=== PATIENT | female | born 1950 | race Caucasian/White ===

== ENCOUNTER 2018-01-07 20:24 | Inpatient (IN) ==
[2018-01-07] MEDS ORDERED: *HR* HYDROcodone/Acet 5/325 mg TABLET PO ONE (22:36)
[2018-01-07 23:21] LABS: Bilirubin,Urine Negative (Negative); Blood,Urine Negative (Negative); Clarity,Urine Clear (Clear); Color,Urine Yellow (Yellow); Glucose,Urine (UA) Normal (Normal); Ketones,Urine Negative (Negative); Leukocyte Esterase,Urine Negative (Negative); Nitrite,Urine Negative (Negative); Protein,Urine Negative (Neg-Trace); Specific Gravity,Urine 1.014 (1.010-1.025); Urobilinogen,Urine Normal (Normal)
[2018-01-07 23:31] LABS: Alanine Aminotransferase 18 Units/L (7-52); Albumin 4.7 g/dL (3.5-5.7); Albumin/Globulin Ratio 1.6 (1.1-2.2); Alkaline Phosphatase 168 Units/L (34-104); Aspartate Amino Transferase 37 Units/L (13-39); BUN/Creatinine Ratio 30 (6-26); Bilirubin,Total 0.4 mg/dL (0.3-1.0); Blood Urea Nitrogen 16 mg/dL (8-23); Calcium 10.1 mg/dL (8.6-10.3); Carbon Dioxide 25 mEq/L (23-29); Chloride 90 mEq/L (98-107); Globulin 2.9 g/dL (2.4-3.5); Glucose 127 mg/dL (70-105); Osmolality,Calculated 261 (280-300); Sodium 124 mEq/L (136-145); Total Protein 7.6 g/dL (6.4-8.9); Troponin I < 0.03 ng/mL (< 0.04); eGFR For African Americans > 60 (> 60); eGFR For Non-African Americans > 60 (> 60)
--- NOTE | 2018-01-07 23:35 | Emergency Department Note ---
Disposition Clinical Impression: Frequent falls, Hyponatremia Wrist fracture, left Qualifiers: Encounter type: initial encounter Fracture type: closed Qualified Code(s): S62.102A - Fracture of unspecified carpal bone, left wrist, initial encounter for closed fracture Disposition: Admitted As Inpatient Condition: Good General Adult HPI - General Chief complaint: ED Extremity Injury, Upper Stated complaint: Fell "L wrist pain"/ CA pt Time Seen by Provider: 01/07/18 21:21 Source: patient Limitations: no limitations Nursing Notes Reviewed: Yes Vital Signs Reviewed: Yes - History of Present Illness HPI Narrative: 67 year old female presents with fall injury. Patient stated she tried to stand up and suddenly blacked out. She fell on her left side arm. Patient felt left wrist pain and swelling. Patient is not sure whether she hit her head. Patient is not on blood thinner. Patient stated it was the fourth time fall in the past 2 weeks. Patient stated she started hearing someone was talking in long distance. She visited her primary care and found out her sodium level was low. Patient denied weakness of extremities. Onset (ago): hour(s) Location: upper extremity Pain Scale: 3 Quality: stabbing Consistency: constant - Related Data Home Medications Medication Instructions Recorded Confirmed Albuterol Neb [Proventil Neb] 2.5 mg IH Q4-6H PRN 10/02/17 10/02/17 Albuterol Sulfate [Proair Hfa] 2 puff IH Q4H PRN 10/02/17 10/02/17 Aspirin Enteric Coated [Aspirin EC] 81 mg PO DAILY 10/02/17 10/02/17 Calcium Carbonate [Tums] 500 mg PO QID PRN 10/02/17 10/02/17 Calcium Crb,Cit/D3/Min34/Lluvia 1 each PO DAILY 10/02/17 10/02/17 [Citracal + Bone Density Tablet] Cyanocobalamin (B-12) [Vitamin B12] 1,000 mcg IM QWEEK 10/02/17 10/02/17 Fluconazole [Diflucan] 150 mg PO DAILY PRN 10/02/17 10/02/17 Fluticasone/Salmeterol [Advair 1 each IH BID 10/02/17 10/02/17 250-50 Diskus] Furosemide [Lasix] 40 mg PO DAILY PRN 10/02/17 10/02/17 HYDROmorphone [Dilaudid] 4 mg PO QID PRN 10/02/17 10/02/17 Levothyroxine [Synthroid] 88 mcg PO 0630 10/02/17 10/02/17 Lidocaine Viscous Oral Soln 10 ml MM QID PRN 10/02/17 10/02/17 Lipase/Protease/Amylase [Luis Miguel Sousa 1 each PO TIDWM 10/02/17 10/02/17 24,000 Units Capsule] Lipase/Protease/Amylase [Kamron Sousa 1 - 2 each PO TIDWM 10/02/17 10/02/17 40,000 Units Capsule] Lisinopril 30 mg PO DAILY 10/02/17 10/02/17 Metoprolol [Lopressor] 25 mg PO BID 10/02/17 10/02/17 Modafinil [Provigil] 100 mg PO DAILY 10/02/17 10/02/17 Multivitamin [One Daily Essential] 1 each PO DAILY 10/02/17 10/02/17 Nitroglycerin [Nitrostat] 0.4 mg SL Q5M PRN 10/02/17 10/02/17 Nystatin POWDER [Nystop] 1 appl TP TID PRN 10/02/17 10/02/17 Ondansetron HCl [Zofran] 4 mg PO Q6H PRN 10/02/17 10/02/17 Oxygen 2 l NS AD 10/02/17 10/02/17 Potassium Chloride [Klor-Con 10] 10 meq PO DAILY PRN 10/02/17 10/02/17 Psyllium Husk [Metamucil] 0.52 gm PO DAILY 10/02/17 10/02/17 Sucralfate [Carafate] 1 gm PO QID 10/02/17 10/02/17 Tamsulosin [Flomax] 0.4 mg PO DAILY 10/02/17 10/02/17 diazePAM [Valium] 5 mg PO TID PRN 10/02/17 10/02/17 lamoTRIgine [Lamictal] 100 mg PO HS 10/02/17 10/02/17 Previous Rx's Medication Instructions Recorded Cyclobenzaprine [Flexeril] 10 mg PO TID #15 tablet 10/01/17 Cyclobenzaprine [Flexeril] 10 mg PO TID PRN #15 tablet 12/14/17 Lidocaine Patch [Lidoderm 5% patch] 1 each TP DAILY #7 adh..patch 12/14/17 Allergies Allergy/AdvReac Type Severity Reaction Status Date / Time ketorolac [From Toradol] Allergy Gastrointestinal Verified 10/01/17 14:23 Upset metronidazole [From Flagyl] Allergy Rash Verified 10/02/17 11:13 Penicillins [PCN] Allergy Hives Verified 10/01/17 14:23 prochlorperazine Allergy Dizziness Verified 10/01/17 14:23 [From Compazine] Sulfa (Sulfonamide Allergy Hives Verified 10/01/17 14:23 Antibiotics) tramadol Allergy Seizure Verified 10/02/17 11:13 Verapamil Allergy Itching Verified 10/01/17 14:23 Constitutional: Denies: fever, chills, weakness, weight change Eyes: Denies: eye pain, eye discharge, vision change ENT ED: Denies: ear pain, throat pain, dental pain, hearing loss, epistaxis, congestion, dysphagia Cardiovascular: Denies: chest pain, palpitations, dyspnea on exertion, edema, syncope Respiratory: Denies: cough, dyspnea, wheezes, hemoptysis, stridor Gastrointestinal: Denies: abdominal pain, nausea, vomiting, diarrhea, constipation, hematemesis, melena, hematochezia Genitourinary: Denies: dysuria, frequency, hematuria, discharge Musculoskeletal: Reports: joint swelling, arthralgia (Left wrist pain and a swelling). Denies: back pain, neck pain, myalgia Integumentary: Denies: rash, abrasion, lesions Neurological: Reports: other (Blacked out). Denies: headache, weakness, numbness, paresthesias, confusion, abnormal gait, vertigo Psychiatric: Reports: auditory hallucinations (Hears someone stalking in long- distance). Denies: anxiety, depression, suicidal thoughts, homicidal thoughts, visual hallucinations Endocrine: Denies: fatigue Hematological/Lymphatic: Denies: easy bleeding, easy bruising Allergic/Immunologic: Denies: facial swelling, urticaria Past Medical History - Past Medical History Medical history: Reports: COPD, coronary artery disease, GERD, hyperlipidemia, hypertension, osteoporosis, renal disease, seizures, thyroid disease, valvular heart disease, other Surgical history: Reports: non-contributory Psychiatric history: Reports: anxiety, depression - Social History Smoking Status: Never smoker Smokeless Tobacco Status: No Alcohol use: Reports: none Drug use: Reports: none Physical Exam - General Limitations: no limitations General appearance: alert, in no apparent distress - Head Head exam: atraumatic, normal inspection - Eye Eye exam: Present: normal appearance. Absent: scleral icterus, conjunctival injection - ENT ENT exam: normal exam, normal external ear exam - Neck Neck exam: Present: normal inspection, full ROM, trachea midline - Chest Chest inspection: Present: normal inspection, symmetric chest wall rise - Respiratory Respiratory exam: Present: normal lung sounds bilaterally. Absent: respiratory distress, wheezes - Cardiovascular Cardiovascular exam: Present: regular rate, normal rhythm, normal heart sounds - Abdominal Exam Abdominal exam: Present: soft, Non-Tender - Expanded Upper Extremity Exam Shoulder exam: Present: normal inspection, full ROM. Absent: tenderness, swelling Arm exam: Present: normal inspection, full ROM Elbow exam: Present: normal inspection, full ROM Forearm/Wrist exam: Present: tenderness, swelling (Left wrist swelling, dorsal side tender to palpation) Hand exam: Present: normal inspection, full ROM. Absent: tenderness, swelling Vascular exam: Normal: capillary refill (Normal) - Back Exam Back exam: Present: normal inspection, full ROM. Absent: tenderness - Neurological Exam Neurological exam: Present: alert, oriented X3, CN II-XII intact. Absent: motor sensory deficit - Psychiatric Psychiatric exam: Present: normal affect, normal mood. Absent: homicidal ideation, suicidal ideation - Skin Skin exam: Present: warm, intact Course Vital Signs Temperature 97.6 F 01/07/18 20:44 Pulse Rate 82 01/07/18 20:44 Respiratory Rate 16 01/07/18 20:44 Blood Pressure 166/88 01/07/18 20:44 O2 Sat by Pulse Oximetry 99 01/07/18 20:44 Temperature 97.8 F 01/08/18 03:26 Pulse Rate 89 01/08/18 03:26 Respiratory Rate 17 01/08/18 03:26 Blood Pressure 164/92 01/08/18 03:26 O2 Sat by Pulse Oximetry 96 01/08/18 03:26 Oxygen Delivery Oxygen Delivery Nasal Cannula Procedures - Orthopedic Splinting/Casting Injury #1 Side: left Upper Extremity Injury Location: wrist Upper Extremity Immobilizer: ulnar gutter (Splint applied by tech, posterior procedure exam was done by anaelf, no neurovascular deficit.) Medical Decision Making - [facility] Narrative Medical decision making narrative: 67 year old female presents with frequently fall. Patient stated she blackout prior to fall. Patient hurt her left wrist at this time. Patient reported auditory hallucination for 3 weeks after the same time she was found lower sodium level. Patient denied weakness of extremities. Physical exam: Alert and oriented, left wrist swelling, tender to palpation, capillary refill time normal, no sensory change. No other focal neurology deficit, cranial nerve function intact. Labs: Sodium 124. Negative troponin. UA: Normal. X-ray: wrist : fracture. Ulnar gutter splint applied in ER. Head CT unremarkable. Patient will be admitted for frequently fall and hyponatrimia. - Lab Data Result diagrams: 01/08/18 01:18 01/07/18 22:54 Lab Results 01/07/18 01/07/18 01/08/18 Range/Units 22:54 23:07 01:18 WBC 8.9 (4.3-11.1) K/mcL RBC 3.76 L (3.82-4.97) M/mcL Hgb 12.3 (11.5-15.4) g/dL Hct 34.7 L (35.3-44.9) % MCV 92.3 (83.0-100.0) fL MCH 32.7 (28.0-33.3) pg MCHC 35.4 (31.6-35.5) g/dL RDW 11.5 (11.5-14.5) % Plt Count 282 (140-400) K/mcL MPV 9.2 L (9.4-12.4) fL Immature Gran % 0.4 (0-4) % Seg Neutrophils % 83.5 % Lymphocytes % 10.3 % Monocytes % 5.1 % Eosinophils % 0.4 % Basophils % 0.3 % Neutrophils # 7.5 (1.6-8.9) K/mcL Lymphocytes # 0.9 (0.6-4.6) K/mcL Monocytes # 0.5 (0.0-1.3) K/mcL Eosinophils # 0.0 (0.0-0.6) K/mcL Basophils # 0.0 (0.0-0.2) K/mcL Immature Plt Fraction 3.1 (1.1-6.1) % Sodium 124 L (136-145) mEq/L Potassium 5.0 (3.5-5.1) mEq/L Chloride 90 L (98-107) mEq/L Carbon Dioxide 25 (23-29) mEq/L BUN 16 (8-23) mg/dL Creatinine 0.54 L (0.60-1.20) mg/dL Est GFR ( Amer) > 60 (> 60) Est GFR (Non-Af Amer) > 60 (> 60) BUN/Creatinine Ratio 30 H (6-26) Glucose 127 H (70-105) mg/dL Calculated Osmolality 261 L (280-300) Calcium 10.1 (8.6-10.3) mg/dL Total Bilirubin 0.4 (0.3-1.0) mg/dL AST 37 (13-39) Units/L ALT 18 (7-52) Units/L Alkaline Phosphatase 168 H (34-104) Units/L Troponin I < 0.03 (< 0.04) ng/mL Serum Total Protein 7.6 (6.4-8.9) g/dL Albumin 4.7 (3.5-5.7) g/dL Globulin 2.9 (2.4-3.5) g/dL Albumin/Globulin Ratio 1.6 (1.1-2.2) Urine Color Yellow (Yellow) Urine Clarity Clear (Clear) Urine pH 7.0 (5.0-8.0) pH Units Ur Specific [place] 1.014 (1.010-1.025) Urine Protein Negative (Neg-Trace) mg/dL Urine Glucose (UA) Normal (Normal) mg/dL Urine Ketones Negative (Negative) mg/dL Urine Blood Negative (Negative) Urine Nitrite Negative (Negative) Urine Bilirubin Negative (Negative) Urine Urobilinogen Normal (Normal) mg/dL Ur Leukocyte Esterase Negative (Negative) Ur Culture Indicated? NO (NO) Attestation Statement - Attestation Attestation: I examined this patient and my medical decision-making was reviewed with the Resident Physician. I agree with the documented findings, disposition and treatment plan as described except to the extent set forth below. Fall, left wrist fracture, we will place and splint, neurovascular intact, subsequent finding of hyponatremia. We will admit for normal saline, further management for frequent falls. CT scan shows no evidence of fracture..
[2018-01-08 01:58] LABS: Basophils % 0.3 %; Eosinophils % 0.4 %; Hematocrit 34.7 % (35.3-44.9); Hemoglobin 12.3 g/dL (11.5-15.4); Immature Granulocytes % 0.4 % (0-4); Immature Platelets 3.1 % (1.1-6.1); Lymphocytes # 0.9 K/mcL (0.6-4.6); Lymphocytes % 10.3 %; Mean Corpuscular HGB Conc 35.4 g/dL (31.6-35.5); Mean Corpuscular Hemoglobin 32.7 pg (28.0-33.3); Mean Corpuscular Volume 92.3 fL (83.0-100.0); Mean Platelet Volume 9.2 fL (9.4-12.4); Monocytes # 0.5 K/mcL (0.0-1.3); Monocytes % 5.1 %; Neutrophils # 7.5 K/mcL (1.6-8.9); Platelet Count 282 K/mcL (140-400); Red Blood Count 3.76 M/mcL (3.82-4.97); Red Cell Distribution Width 11.5 % (11.5-14.5); Segmented Neutrophils % 83.5 %
[2018-01-08] MEDS ORDERED: *HR* OxyCODONE/APAP 5/325 TABLET PO ONE (02:23)
[2018-01-08] MEDS ORDERED: Naloxone 0.4 MG/ML INJ IVP PRN (04:54)
[2018-01-08] MEDS ORDERED: *HR* HYDROcodone/Acet 5/325 mg TABLET PO PRN (04:54)
[2018-01-08] MEDS: *HR* Heparin 5,000 UNIT/ML VIAL SQ SCH ×2 (05:54→17:07)
--- NOTE | 2018-01-08 07:02 | Internal Med History&Physical ---
Date of Encounter: 01/08/18 Time of Encounter: 03:00 Internal Medicine - H&P: HPI Chief complaint: Syncope and fall Admitted From: Home Plans for Post Hospital Care: Home History of present illness: Ms. Ortiz is a 67 year old female present to ER for syncope and fall. Past medical history is significant for osteoporosis, hypothyroidism, COPD, hypertension, chronic pancreatitis, hyponatremia, chronic pain on intrathecal hydrmorphane pump, seizure. Patient has 4 times fall in last 3 weeks. Patient said she has dizziness prior to fall. With loss of consciousness. Today, she had head hit and right wrist pain. Patient denies seizure-like activity during syncope. Patient denies chest pain or palpitation prior to fall/syncope. She has no tongue bite or urinary incontinence. Patient denies other part of the body pain. In the emergency room, CT head negative, x-ray shows left wrist fracture. Patient was admitted for further management. Patient also mentioned right lower leg swelling for 4 days, with tenderness. I have discussed CODE STATUS with this patient. Patient clearly told me she does not want CPR or intubation. DNR DNI placed. Past Med Surg Social Fam HX - Past Medical History Medical history: COPD, coronary artery disease, GERD, hyperlipidemia, hypertension, osteoporosis, renal disease, seizures, thyroid disease, valvular heart disease, other Additional medical history: low sodium Psychiatric history: anxiety, depression - Past Surgical History Surgical History: non-contributory Additional surgical history: Gastric Bypass - Social History Smoking Status: Never smoker Smokeless Tobacco Status: No Alcohol use: none Drug use: none - Family History Mother History Unknown: Yes Internal Medicine - H&P: Meds Cyclobenzaprine [Flexeril] 10 mg PO TID #15 tablet 10/01/17 [Rx] Albuterol Neb [Proventil Neb] 2.5 mg IH Q4-6H PRN 10/02/17 [History] Albuterol Sulfate [Proair Hfa] 2 puff IH Q4H PRN 10/02/17 [History] Aspirin Enteric Coated [Aspirin EC] 81 mg PO DAILY 10/02/17 [History] Calcium Carbonate [Tums] 500 mg PO QID PRN 10/02/17 [History] Calcium Crb,Cit/D3/Min34/Lluvia [Citracal + Bone Density Tablet] 1 each PO DAILY 10/02/17 [History] Cyanocobalamin (B-12) [Vitamin B12] 1,000 mcg IM QWEEK 10/02/17 [History] Fluconazole [Diflucan] 150 mg PO DAILY PRN 10/02/17 [History] Fluticasone/Salmeterol [Advair 250-50 Diskus] 1 each IH BID 10/02/17 [History] Furosemide [Lasix] 40 mg PO DAILY PRN 10/02/17 [History] HYDROmorphone [Dilaudid] 4 mg PO QID PRN 10/02/17 [History] Levothyroxine [Synthroid] 88 mcg PO 0630 10/02/17 [History] Lidocaine Viscous Oral Soln 10 ml MM QID PRN 10/02/17 [History] Lipase/Protease/Amylase [Creon Dr 24,000 Units Capsule] 1 each PO TIDWM [History] Lipase/Protease/Amylase [Zenpep Dr 40,000 Units Capsule] 1 - 2 each PO TIDWM [History] Lisinopril 30 mg PO DAILY 10/02/17 [History] Metoprolol [Lopressor] 25 mg PO BID 10/02/17 [History] Modafinil [Provigil] 100 mg PO DAILY 10/02/17 [History] Multivitamin [One Daily Essential] 1 each PO DAILY 10/02/17 [History] Nitroglycerin [Nitrostat] 0.4 mg SL Q5M PRN 10/02/17 [History] Nystatin POWDER [Nystop] 1 appl TP TID PRN 10/02/17 [History] Ondansetron HCl [Zofran] 4 mg PO Q6H PRN 10/02/17 [History] Oxygen 2 l NS AD 10/02/17 [History] Potassium Chloride [Klor-Con 10] 10 meq PO DAILY PRN 10/02/17 [History] Psyllium Husk [Metamucil] 0.52 gm PO DAILY 10/02/17 [History] Sucralfate [Carafate] 1 gm PO QID 10/02/17 [History] Tamsulosin [Flomax] 0.4 mg PO DAILY 10/02/17 [History] diazePAM [Valium] 5 mg PO TID PRN 10/02/17 [History] lamoTRIgine [Lamictal] 100 mg PO HS 10/02/17 [History] Cyclobenzaprine [Flexeril] 10 mg PO TID PRN #15 tablet 12/14/17 [Rx] Lidocaine Patch [Lidoderm 5% patch] 1 each TP DAILY #7 adh..patch 12/14/17 [Rx] 3 Allergy/AdvReac Type Severity Reaction Status Date / Time ketorolac [From Toradol] Allergy Gastrointestinal Verified 10/01/17 14:23 Upset metronidazole [From Flagyl] Allergy Rash Verified 10/02/17 11:13 Penicillins [PCN] Allergy Hives Verified 10/01/17 14:23 prochlorperazine Allergy Dizziness Verified 10/01/17 14:23 [From Compazine] Sulfa (Sulfonamide Allergy Hives Verified 10/01/17 14:23 Antibiotics) tramadol Allergy Seizure Verified 10/02/17 11:13 Verapamil Allergy Itching Verified 10/01/17 14:23 All Systems PM: A 10-system review of systems was performed and is negative for pertinent findings except as documented above in the HPI. - Constitutional Vitals: Temp Pulse Resp BP Pulse Ox 97.8 F 89 17 164/92 96 01/08/18 03:26 01/08/18 03:26 01/08/18 03:26 01/08/18 03:26 01/08/18 03:26 General appearance: Present: A&O X 3, no acute distress, answers questions appropriately - Head Head exam: Present: atraumatic, normocephalic - Eye Eye exam: Present: PERRL, conjuntiva pink, sclera anicteric Pupils: Present: PERRL - Neck Neck exam general surgery: Present: supple, trachea midline. Absent: lymphadenopathy - Respiratory Respiratory exam: Present: CTAB. Absent: accessory muscle use, rales, rhonchi, wheezes - Cardiovascular Cardiovascular exam: Present: RRR, +S1, +S2. Absent: diastolic murmur, gallop, rubs, systolic murmur - GI/Abdominal GI/Abdominal exam: Present: normal bowel sounds, soft, no peritoneal signs. Absent: distended, tenderness - Extremities Exam Extremities exam: Present: calf tenderness (On the right lower leg), warm, radial pulses palpable and symmetrical. Absent: cyanotic, pedal edema Additional comments: Left wrist in splint. - Neurological Exam Neurological exam: Present: CN II-XII intact, oriented X3, no focal deficits. Absent: pronater drift, facial droop, speech deficit - Skin Skin exam: Present: dry, intact Internal Med - H&P Results - Labs CBC & Chem 7: 01/08/18 01:18 01/07/18 22:54 - Assessment and plan (1) Right leg swelling Current Visit: Yes Status: Acute Assessment and plan: Need to rule out DVT. Place on Doppler venous stat. (2) Syncope Current Visit: Yes Status: Acute Assessment and plan: Etiology is undetermined. Need to rule out cardio/neuro etiology. Highly suspect pain pump causing the syncope. - Place patient on continuous Cardiac monitoring - Echo and duplex carotid - Patient will follow-up with his pain management doctor in [facility] to adjust the infusion rate of intrathecal pump Qualifiers: Syncope type: unspecified Qualified Code(s): R55 - Syncope and collapse (3) COPD (chronic obstructive pulmonary disease) Current Visit: Yes Status: Acute Assessment and plan: No wheezing, continue home medications Qualifiers: COPD type: emphysema Emphysema type: unspecified Qualified Code(s): J43.9 - Emphysema, unspecified (4) Hypertension Current Visit: Yes Status: Acute Assessment and plan: Continue home medications after verification. Close monitor patient's BP Qualifiers: Hypertension type: essential hypertension Qualified Code(s): I10 - Essential (primary) hypertension (5) DVT prophylaxis Current Visit: Yes Status: Acute Assessment and plan: Heparin subcutaneously (6) Frequent falls Current Visit: Yes Status: Acute Assessment and plan: Due to syncope. Management as above (7) Hyponatremia Current Visit: Yes Status: Acute Assessment and plan: Chronic. Continue sodium pills by mouth. Follow-up sodium level (8) Wrist fracture, left Current Visit: Yes Status: Acute Assessment and plan: Minimal displacement. Splint placed by ER. Will consult orthopedic, nonurgent, day shift to call. Continue pain management. Qualifiers: Encounter type: initial encounter Fracture type: closed Qualified Code(s) : S62.102A - Fracture of unspecified carpal bone, left wrist, initial encounter for closed fracture - Time Spent With Patient Total time spent is greater than 50% in coordination of care (as documented) at patient's floor/unit and/or counseling patient: 40 minutes Greater than 35 minutes
[2018-01-08] MEDS: Aspirin Enteric Coated 81 MG Tablet PO SCH (09:16)
--- NOTE | 2018-01-08 09:46 | Event Note ---
Date of Encounter: 01/08/18 Time of Encounter: 09:41 Seen and examined at bedside 67 F with OP, chronic pancreatitis, chronic pain with an intrathecal pump, chronic hyponatremia, seizure disorder, copd, HTN She is admitted to obs for syncope and recurrent falls She complained of feeling her L knee "locked", she stopped taking her sodium pils on recommendation by her PCP She also sustained a L radial and ulnar fracture-ortho has been consulte, Dr. Tamez informed Physical exam: AAOX3, NAD, VSS, CTAB, S1, S2, bilatera pitiing pedal edema, RLE >LLE Labs and Imaging reviewed Plan is to reconcile and resume home meds including diuretics, continue current management, follow ECHO report, Venous doppler of RLE negative for DVT, Carotid doppler negative for stenotic plaques PTOT eval after ortho eval Patient is a fall risk
[2018-01-08] MEDS ORDERED: Albuterol 2.5 MG/3 ML NEBULIZER IH PRN ×2 (10:00→10:18)
[2018-01-08] MEDS: Budesonide/Formoterol 80/4.5 MDI IH SCH ×2 (10:18→19:47)
--- NOTE | 2018-01-08 11:51 | Orthopedic Consult Note ---
Date of Encounter: 01/08/18 Time of Encounter: 10:45 Assessment and Plan (1) Wrist fracture, left Current Visit: Yes Status: Acute Left distal radius and ulnar styloid fracture. Discussed with Dr. Rcici and will require left ORIF. Plan for surgery on 01/10. Depending on her work up for the syncope this procedure can be done on outpatient basis if she is discharged before that time. I did discuss the procedure with the patient and as well as the r/b/a and she expressed understanding. Consent was signed and given to surgery tech in [facility] office to be scanned into system. Leave splint in place until surgery. Continue to ice and elevate. ROM of fingers as tolerated. NWB to LUE. Pain control per hospitalist. Will need to be NPO midnight before surgery. Qualifiers: Encounter type: initial encounter Fracture type: closed Qualified Code(s) : S62.102A - Fracture of unspecified carpal bone, left wrist, initial encounter for closed fracture History of Present Illness Chief complaint: left wrist pain HPI: Ms. Ortiz is a 67 year old female who presented to [facility] yesterday with left wrist pain after a fall yesterday. She has been having frequent syncope episodes which she states she passes out just for a second, long enough to cause a fall and this is roughly the 9th time it has happened in the last 2 months. States her PCP at [place] has been managing this. She believes she fell on outstretched hand and has had constant pain in wrist since that time, currently under control with medication and improved with elevation, worse when not elevated. Denies any numbness to fingers but does have some tingling. Denies any chest pain, SOB, fevers. She is right hand dominant. She states she broke this same wrist less than a year ago. Upon further reading in [facility] chart, she had RIGHT distal radius fracture 06/2017 with conservative treatment by Dr. Archer but patient never returned to the office after her 2 week follow up appt. She denies any concerns with her right wrist at this time but does mention her hands have been turning red for the past week or so with no known new exposures or injuries. States PCP is looking into this as well. She also admits to her left knee"locking up" on her roughly once a week but states this is not the cause of her falls. [facility]. She also admits to swelling to the right leg for the past week as well. Past Med Surg Social Fam HX - Past Medical History Medical history: COPD, coronary artery disease, GERD, hyperlipidemia, hypertension, osteoporosis, renal disease, seizures, thyroid disease, valvular heart disease, other Additional medical history: low sodium Psychiatric history: anxiety, depression - Past Surgical History Surgical History: non-contributory Additional surgical history: Gastric Bypass - Social History Smoking Status: Never smoker Smokeless Tobacco Status: No Alcohol use: none Drug use: none - Family History Mother History Unknown: Yes Medications and Allergies Albuterol Neb [Proventil Neb] 2.5 mg IH Q4-6H PRN 10/02/17 [History] Albuterol Sulfate [Proair Hfa] 2 puff IH Q4H PRN 10/02/17 [History] Aspirin Enteric Coated [Aspirin EC] 81 mg PO DAILY 10/02/17 [History] Calcium Carbonate [Tums] 500 mg PO QID PRN 10/02/17 [History] Calcium Crb,Cit/D3/Min34/Lluvia [Citracal + Bone Density Tablet] 1 each PO DAILY 10/02/17 [History] Fluticasone/Salmeterol [Advair 250-50 Diskus] 1 each IH BID 10/02/17 [History] HYDROmorphone [Dilaudid] 4 mg PO QID PRN 10/02/17 [History] Levothyroxine [Synthroid] 88 mcg PO 0630 10/02/17 [History] Lidocaine Viscous Oral Soln 10 ml MM QID PRN 10/02/17 [History] Lipase/Protease/Amylase [Luis Miguel Sousa 24,000 Units Capsule] 1 each PO TIDWM [History] Lisinopril 30 mg PO DAILY 10/02/17 [History] Modafinil [Provigil] 100 mg PO DAILY 10/02/17 [History] Multivitamin [One Daily Essential] 1 each PO DAILY 10/02/17 [History] Nitroglycerin [Nitrostat] 0.4 mg SL Q5M PRN 10/02/17 [History] Nystatin POWDER [Nystop] 1 appl TP TID PRN 10/02/17 [History] Ondansetron HCl [Zofran] 4 mg PO Q6H PRN 10/02/17 [History] Oxygen 2 l NS AD 10/02/17 [History] Potassium Chloride [Klor-Con 10] 10 meq PO DAILY PRN 10/02/17 [History] Psyllium Husk [Metamucil] 0.52 gm PO DAILY 10/02/17 [History] Sucralfate [Carafate] 1 gm PO QID 10/02/17 [History] Tamsulosin [Flomax] 0.4 mg PO DAILY 10/02/17 [History] diazePAM [Valium] 5 mg PO TID PRN 10/02/17 [History] lamoTRIgine [Lamictal] 100 mg PO HS 10/02/17 [History] Cyclobenzaprine [Flexeril] 10 mg PO TID PRN #15 tablet 12/14/17 [Rx] Acetaminophen [Tylenol] 650 mg PO Q6HR 01/08/18 [History] Esomeprazole Magnesium [Nexium] 40 mg PO Q12H 01/08/18 [History] Furosemide [Lasix] 20 mg PO DAILY 01/08/18 [History] LORazepam [Ativan] 1 mg PO TID 01/08/18 [History] Lidocaine Patch [Lidoderm 5% patch] 1 patch TP DAILY 01/08/18 [History] Metoprolol Succinate [Toprol Xl] 50 mg PO DAILY 01/08/18 [History] Promethazine [Phenergan] 25 mg PO Q6HR 01/08/18 [History] Spironolactone [Aldactone] 25 mg PO DAILY 01/08/18 [History] amLODIPine [Norvasc] 5 mg PO DAILY 01/08/18 [History] 3 Allergy/AdvReac Type Severity Reaction Status Date / Time ketorolac [From Toradol] Allergy Gastrointestinal Verified 01/08/18 10:38 Upset metronidazole [From Flagyl] Allergy Rash Verified 01/08/18 10:38 Penicillins [PCN] Allergy Hives Verified 01/08/18 10:38 prochlorperazine Allergy Dizziness Verified 01/08/18 10:38 [From Compazine] Sulfa (Sulfonamide Allergy Hives Verified 01/08/18 10:38 Antibiotics) tramadol Allergy Seizure Verified 01/08/18 10:38 Verapamil Allergy Itching Verified 01/08/18 10:38 All Systems Reviewed: The remainder of the systems were reviewed and are negative - Constitutional Constitutional: as per HPI - Cardiovascular Cardiovascular: as per HPI - Respiratory Respiratory: as per HPI - Musculoskeletal Musculoskeletal: as per HPI Physical Exam - Constitutional Vitals: Temp Pulse Resp BP Pulse Ox 97.4 F L 89 17 167/86 98 01/08/18 09:11 01/08/18 09:11 01/08/18 10:20 01/08/18 09:11 01/08/18 10:20 - Wrist & Hand left Location of pain: volar wrist (short volar splint in place to left arm, not removed for exam due to known fracture. minimal swelling to fingers. no skin breakdown around edges of splint. limited ROM of fingers and elbow. brisk cap refill. grossly NV intact) Results - Labs Result Diagrams: 01/08/18 01:18 01/07/18 22:54 Labs: Abnormal lab results RBC 3.76 M/mcL (3.82-4.97) L 01/08/18 01:18 Hct 34.7 % (35.3-44.9) L 01/08/18 01:18 MPV 9.2 fL (9.4-12.4) L 01/08/18 01:18 Sodium 124 mEq/L (136-145) L 01/07/18 22:54 Chloride 90 mEq/L (98-107) L 01/07/18 22:54 Creatinine 0.54 mg/dL (0.60-1.20) L 01/07/18 22:54 BUN/Creatinine Ratio 30 (6-26) H 01/07/18 22:54 Glucose 127 mg/dL (70-105) H 01/07/18 22:54 Calculated Osmolality 261 (280-300) L 01/07/18 22:54 Alkaline Phosphatase 168 Units/L (34-104) H 01/07/18 22:54 All other labs normal. - Diagnostic results Wrist/Hand x-ray: report reviewed, image reviewed Consult Discharge Plan - Plan Referrals: Lance Marcos MD [Primary Care Provider] - - Attending Attestation Case and plan of care discussed with supervising physician who was available for all aspects of care.
[2018-01-08] MEDS: Acetaminophen 325 MG TABLET PO PRN ×2 (12:31→20:08)
[2018-01-08] MEDS: Furosemide 20 MG TABLET PO SCH (12:31)
--- NOTE | 2018-01-08 16:22 | Electrocardiograph Report ---
[place] [id number] Test Date: 2018-01-07 Pat Name: Elisa Ortiz Department: 102 Room: 2A11 Gender: F Operations Assistant: : [id number] Requested By: Quentin Rojo Order Number: [id number] Reading MD: Renu Lin Measurements Intervals [place] Rate: 77 P: 68 NC: 140 QRS: -3 QRSD: 85 T: 18 QT: 369 QTc: 401 Interpretive Statements SINUS RHYTHM POSSIBLE ANTERIOR MYOCARDIAL INFARCTION [30 ms Q WAVE IN V3/V4, OR R < 0.2 mV IN V4], OF INDETERMINATE AGE ARTIFACT Electronically Signed On 01-08-2018 16:21:19 EDT by Renu Lin
[2018-01-08 18:31] LABS: BUN/Creatinine Ratio 28 (6-26); Blood Urea Nitrogen 16 mg/dL (8-23); Calcium 9.8 mg/dL (8.6-10.3); Carbon Dioxide 27 mEq/L (23-29); Chloride 92 mEq/L (98-107); Glucose 103 mg/dL (70-105); Osmolality,Calculated 263 (280-300); Potassium 4.6 mEq/L (3.5-5.1); Sodium 126 mEq/L (136-145); eGFR For African Americans > 60 (> 60); eGFR For Non-African Americans > 60 (> 60)
[2018-01-08] MEDS: lamoTRIgine 100 MG TABLET PO SCH (20:08)
[2018-01-09] MEDS: Acetaminophen 325 MG TABLET PO PRN ×3 (04:10→18:24)
[2018-01-09 04:58] LABS: Basophils % 0.4 %; Eosinophils # 0.1 K/mcL (0.0-0.6); Eosinophils % 2.1 %; Hematocrit 32.2 % (35.3-44.9); Hemoglobin 11.4 g/dL (11.5-15.4); Immature Granulocytes % 0.4 % (0-4); Lymphocytes # 1.3 K/mcL (0.6-4.6); Lymphocytes % 23.4 %; Mean Corpuscular HGB Conc 35.4 g/dL (31.6-35.5); Mean Corpuscular Hemoglobin 33.4 pg (28.0-33.3); Mean Corpuscular Volume 94.4 fL (83.0-100.0); Mean Platelet Volume 9.4 fL (9.4-12.4); Monocytes # 0.5 K/mcL (0.0-1.3); Monocytes % 8.3 %; Neutrophils # 3.7 K/mcL (1.6-8.9); Platelet Count 233 K/mcL (140-400); Red Blood Count 3.41 M/mcL (3.82-4.97); Red Cell Distribution Width 11.3 % (11.5-14.5); Segmented Neutrophils % 65.4 %
[2018-01-09 05:13] LABS: BUN/Creatinine Ratio 13 (6-26); Blood Urea Nitrogen 6 mg/dL (8-23); Calcium 9.6 mg/dL (8.6-10.3); Carbon Dioxide 29 mEq/L (23-29); Chloride 92 mEq/L (98-107); Glucose 88 mg/dL (70-105); Magnesium 1.7 mg/dL (1.6-2.6); Osmolality,Calculated 261 (280-300); Potassium 3.9 mEq/L (3.5-5.1); Sodium 127 mEq/L (136-145); eGFR For African Americans > 60 (> 60); eGFR For Non-African Americans > 60 (> 60)
[2018-01-09] MEDS: *HR* Heparin 5,000 UNIT/ML VIAL SQ SCH ×2 (05:54→17:27)
[2018-01-09] MEDS: Budesonide/Formoterol 80/4.5 MDI IH SCH ×2 (07:21→19:46)
[2018-01-09] MEDS: Aspirin Enteric Coated 81 MG Tablet PO SCH (07:32)
[2018-01-09] MEDS: Furosemide 20 MG TABLET PO SCH (07:32)
[2018-01-09] MEDS: Patient Taking Own Medication 1 EACH SQ SCH (07:51)
--- NOTE | 2018-01-09 12:46 | Internal Med Progress Note ---
Date of Encounter: 01/09/18 Time of Encounter: 12:42 - Assessment and plan (1) Frequent falls Current Visit: Yes Status: Acute Assessment and plan: PTOT eval prior to discharge (2) Hyponatremia Current Visit: Yes Status: Chronic Assessment and plan: Chronic. Continue sodium pills by mouth. continue to monitor chem (3) Wrist fracture, left Current Visit: Yes Status: Acute Assessment and plan: managment per ortho, for surgery a.m Patient is low risk for cardiovascular effects from surgery, she has had multiple surgeries in the past EKG is non-ishcemic ECHO is unremarkable NO cough or chest pain, no indication for CXR Qualifiers: Encounter type: initial encounter Fracture type: closed Qualified Code(s) : S62.102A - Fracture of unspecified carpal bone, left wrist, initial encounter for closed fracture (4) Right leg swelling Current Visit: Yes Status: Acute Assessment and plan: DVT ruled out (5) Syncope Current Visit: Yes Status: Acute Assessment and plan: Head CT, ECHO, Carotid doppler, without active issues continue tele PT eval Qualifiers: Syncope type: unspecified Qualified Code(s): R55 - Syncope and collapse (6) COPD (chronic obstructive pulmonary disease) Current Visit: Yes Status: Acute Assessment and plan: No wheezing, continue home medications Qualifiers: COPD type: emphysema Emphysema type: unspecified Qualified Code(s): J43.9 - Emphysema, unspecified (7) Hypertension Current Visit: Yes Status: Acute Assessment and plan: Continue home medications Qualifiers: Hypertension type: essential hypertension Qualified Code(s): I10 - Essential (primary) hypertension (8) DVT prophylaxis Current Visit: Yes Status: Acute Assessment and plan: Heparin subcutaneously - Time Spent With Patient Total time spent is greater than 50% in coordination of care (as documented) at patient's floor/unit and/or counseling patient: - Subjective Interval history: Seen and evaluated at bedside Patient with recurrent falls, syncope, sustaine Left radial/ulnar frature Awaiting PT eval, Patient is not safe to go home without PT eval She has no new complains today - Constitutional Vitals: Temp Pulse Resp BP Pulse Ox 98.0 F 77 20 145/77 100 01/09/18 11:46 01/09/18 11:46 01/09/18 11:46 01/09/18 11:46 01/09/18 11:46 General appearance: Present: A&O X 3, no acute distress, answers questions appropriately - Head Head exam: Present: atraumatic, normocephalic - Eye Eye exam: Present: PERRL, conjuntiva pink, sclera anicteric Pupils: Present: PERRL - Neck Neck exam general surgery: Present: supple, trachea midline. Absent: lymphadenopathy - Respiratory Respiratory exam: Present: CTAB. Absent: accessory muscle use, rales, rhonchi, wheezes - Cardiovascular Cardiovascular exam: Present: RRR, +S1, +S2. Absent: diastolic murmur, gallop, rubs, systolic murmur - GI/Abdominal GI/Abdominal exam: Present: normal bowel sounds, soft, no peritoneal signs. Absent: distended, tenderness - Extremities Exam Extremities exam: Present: pedal edema (improved compared to prior) - Neurological Exam Neurological exam: Present: alert, CN II-XII intact, oriented X3, no focal deficits. Absent: pronater drift, facial droop, speech deficit - Skin Skin exam: Present: dry, intact Internal Medicine: Result - Labs CBC & Chem 7: 01/09/18 04:13 01/09/18 04:13 Consult Discharge Plan - Plan Referrals: Lance Marcos MD [Primary Care Provider] - 01/17/18 2:45 pm (Please follow as schedule....)
--- NOTE | 2018-01-09 12:53 | Orthopedics Progress Note ---
Date of Encounter: 01/09/18 Time of Encounter: 12:15 - Assessment and Plan (1) Wrist fracture, left Current Visit: Yes Status: Acute Left distal radius and ulnar styloid fracture. Discussed with Dr. Ricci and will require left ORIF. Plan for surgery on 01/10. Depending on her work up for the syncope this procedure can be done on outpatient basis if she is discharged before that time. I did discuss the procedure with the patient and as well as the r/b/a and she expressed understanding. Consent was signed and given to laborer pole crew in [facility] office to be scanned into system. Leave splint in place until surgery. Continue to ice and elevate. ROM of fingers as tolerated. NWB to LUE. Pain control per hospitalist. Will need to be NPO midnight tonight. Qualifiers: Encounter type: initial encounter Fracture type: closed Qualified Code(s) : S62.102A - Fracture of unspecified carpal bone, left wrist, initial encounter for closed fracture Subjective Principal diagnosis: left distal radius fracture Interval history: Patient states the wrist is throbbing more today. Continues to have some tingling in fingers. Denies any other concerns at this time. Objective Vital signs: Vital Signs Temp Pulse Resp BP Pulse Ox 01/09/18 11:46 98.0 F 77 20 145/77 100 Intake and Output 01/08/18 01/09/18 01/09/18 23:59 07:59 15:59 Intake Total 480 / 480 Balance 480 / 480 Intake: Oral 480 / 480 Other: Meal Breakfast Percent of Meal Consumed 0% Incision: swollen (mild swelling noted to fingers, small improvment to motion of fingers. splint in place with no skin breakdown at edges of splint. brisk cap refill. grossly NV intact) - Labs CBC & BMP: 01/09/18 04:13 01/09/18 04:13 Labs: Abnormal lab results RBC 3.41 M/mcL (3.82-4.97) L 01/09/18 04:13 Hgb 11.4 g/dL (11.5-15.4) L 01/09/18 04:13 Hct 32.2 % (35.3-44.9) L 01/09/18 04:13 MCH 33.4 pg (28.0-33.3) H 01/09/18 04:13 RDW 11.3 % (11.5-14.5) L 01/09/18 04:13 Sodium 127 mEq/L (136-145) L 01/09/18 04:13 Chloride 92 mEq/L (98-107) L 01/09/18 04:13 BUN 6 mg/dL (8-23) L 01/09/18 04:13 Creatinine 0.45 mg/dL (0.60-1.20) L 01/09/18 04:13 Calculated Osmolality 261 (280-300) L 01/09/18 04:13 Alkaline Phosphatase 168 Units/L (34-104) H 01/07/18 22:54 Consult Discharge Plan - Plan Referrals: Lance Marcos MD [Primary Care Provider] - 01/17/18 2:45 pm (Please follow as schedule....)
[2018-01-09] MEDS: lamoTRIgine 100 MG TABLET PO SCH (21:34)
[2018-01-10] MEDS: Acetaminophen 325 MG TABLET PO PRN ×2 (00:34→07:33)
[2018-01-10] MEDS: *HR* Heparin 5,000 UNIT/ML VIAL SQ SCH ×2 (04:09→21:17)
[2018-01-10 06:20] LABS: Basophils # 0.1 K/mcL (0.0-0.2); Eosinophils # 0.1 K/mcL (0.0-0.6); Eosinophils % 2.8 %; Hemoglobin 10.7 g/dL (11.5-15.4); Immature Granulocytes % 0.2 % (0-4); Lymphocytes # 1.2 K/mcL (0.6-4.6); Lymphocytes % 23.6 %; Mean Corpuscular HGB Conc 34.5 g/dL (31.6-35.5); Mean Corpuscular Hemoglobin 32.2 pg (28.0-33.3); Mean Corpuscular Volume 93.4 fL (83.0-100.0); Mean Platelet Volume 9.3 fL (9.4-12.4); Monocytes # 0.4 K/mcL (0.0-1.3); Monocytes % 7.3 %; Neutrophils # 3.3 K/mcL (1.6-8.9); Platelet Count 215 K/mcL (140-400); Red Blood Count 3.32 M/mcL (3.82-4.97); Red Cell Distribution Width 11.3 % (11.5-14.5); Segmented Neutrophils % 65.1 %
[2018-01-10 06:31] LABS: BUN/Creatinine Ratio 16 (6-26); Blood Urea Nitrogen 7 mg/dL (8-23); Calcium 9.2 mg/dL (8.6-10.3); Carbon Dioxide 28 mEq/L (23-29); Chloride 94 mEq/L (98-107); Glucose 97 mg/dL (70-105); Osmolality,Calculated 262 (280-300); Potassium 3.9 mEq/L (3.5-5.1); Sodium 127 mEq/L (136-145); eGFR For African Americans > 60 (> 60); eGFR For Non-African Americans > 60 (> 60)
[2018-01-10] MEDS: Budesonide/Formoterol 80/4.5 MDI IH SCH ×2 (07:30→20:14)
[2018-01-10] MEDS: Aspirin Enteric Coated 81 MG Tablet PO SCH (07:32)
[2018-01-10] MEDS: Furosemide 20 MG TABLET PO SCH (07:33)
[2018-01-10] MEDS: Patient Taking Own Medication 1 EACH SQ SCH (07:55)
[2018-01-10 08:17] LABS: Prothrombin Time 10.7 Seconds (9.4-12.1)
[2018-01-10 08:20] LABS: Activated Partial Thrombo Time 36.4 Seconds (26.0-36.0)
--- NOTE | 2018-01-10 10:27 | Internal Med Progress Note ---
Date of Encounter: 01/10/18 Time of Encounter: 10:26 - Assessment and plan (1) Frequent falls Current Visit: Yes Status: Acute Assessment and plan: PTOT eval prior to discharge (2) Hyponatremia Current Visit: Yes Status: Chronic Assessment and plan: Chronic. Back to baseline Continue sodium pills by mouth. continue to monitor chem (3) Wrist fracture, left Current Visit: Yes Status: Acute Assessment and plan: managment per ortho, for surgery today Patient is low risk for cardiovascular effects from surgery, she has had multiple surgeries in the past EKG is non-ishcemic ECHO is unremarkable NO cough or chest pain, no indication for CXR Qualifiers: Encounter type: initial encounter Fracture type: closed Qualified Code(s) : S62.102A - Fracture of unspecified carpal bone, left wrist, initial encounter for closed fracture (4) Right leg swelling Current Visit: Yes Status: Acute Assessment and plan: DVT ruled out (5) Syncope Current Visit: Yes Status: Acute Assessment and plan: Head CT, ECHO, Carotid doppler, without active issues continue tele PT eval Qualifiers: Syncope type: unspecified Qualified Code(s): R55 - Syncope and collapse (6) COPD (chronic obstructive pulmonary disease) Current Visit: Yes Status: Chronic Assessment and plan: No wheezing, continue home medications Qualifiers: COPD type: emphysema Emphysema type: unspecified Qualified Code(s): J43.9 - Emphysema, unspecified (7) Hypertension Current Visit: Yes Status: Chronic Assessment and plan: Continue home medications Qualifiers: Hypertension type: essential hypertension Qualified Code(s): I10 - Essential (primary) hypertension (8) DVT prophylaxis Current Visit: Yes Status: Acute Assessment and plan: Heparin subcutaneously (9) Anemia Current Visit: Yes Status: Chronic Assessment and plan: patient stated she is known to be anemia chronically Continue to monitor Type and screen Qualifiers: Anemia type: unspecified type Qualified Code(s): D64.9 - Anemia, unspecified - Time Spent With Patient Total time spent is greater than 50% in coordination of care (as documented) at patient's floor/unit and/or counseling patient: - Subjective Interval history: 67 F with OP, chronic pancreatitis, chronic pain with an intrathecal pump, chronic hyponatremia, seizure disorder, copd, HTN Seen and evaluated at bedside Patient with recurrent falls, syncope, sustained Left radial/ulnar frature No new complains Going to surgery this afternoon HB noted on the downtrend, no source of bleeding - Constitutional Vitals: Temp Pulse Resp BP Pulse Ox 97.8 F 80 16 148/81 99 01/10/18 06:49 01/10/18 06:49 01/10/18 07:30 01/10/18 06:49 01/10/18 07:30 General appearance: Present: A&O X 3, no acute distress, answers questions appropriately - Head Head exam: Present: atraumatic, normocephalic - Eye Eye exam: Present: PERRL, conjuntiva pink, sclera anicteric Pupils: Present: PERRL - Neck Neck exam general surgery: Present: supple, trachea midline. Absent: lymphadenopathy - Respiratory Respiratory exam: Present: CTAB. Absent: accessory muscle use, rales, rhonchi, wheezes - Cardiovascular Cardiovascular exam: Present: RRR, +S1, +S2. Absent: diastolic murmur, gallop, rubs, systolic murmur - GI/Abdominal GI/Abdominal exam: Present: normal bowel sounds, soft, no peritoneal signs. Absent: distended, tenderness - Extremities Exam Extremities exam: Present: pedal edema, warm, radial pulses palpable and symmetrical. Absent: calf tenderness, cyanotic Additional comments: L arm in sling - Neurological Exam Neurological exam: Present: alert, CN II-XII intact, oriented X3, no focal deficits. Absent: pronater drift, facial droop, speech deficit - Skin Skin exam: Present: dry, intact Internal Medicine: Result - Labs CBC & Chem 7: 01/10/18 05:55 01/10/18 05:55 Labs: Short CBC 01/10/18 Range/Units 05:55 WBC 5.1 (4.3-11.1) K/mcL Hgb 10.7 L (11.5-15.4) g/dL Hct 31.0 L (35.3-44.9) % Plt Count 215 (140-400) K/mcL Neutrophils # 3.3 (1.6-8.9) K/mcL BMP 01/10/18 05:55 Sodium 127 L Potassium 3.9 Chloride 94 L Carbon Dioxide 28 BUN 7 L Creatinine 0.43 L Glucose 97 Calcium 9.2 - ABG Interpretation ABG results: PT/INR, D-dimer PT 10.7 Seconds (9.4-12.1) 01/10/18 07:45 Consult Discharge Plan - Plan Referrals: Lance Marcos MD [Primary Care Provider] - 01/17/18 2:45 pm (Please follow as schedule....)
[2018-01-10] MEDS ORDERED: *HR* Propofol 200 MG/20 ML VIAL IVP ONE (12:35)
[2018-01-10] MEDS ORDERED: *HR* Midazolam HCl 2 MG/2 ML VIAL ONE (12:36)
[2018-01-10] MEDS ORDERED: Lidocaine -MPF 2% 2 ML VIAL ONE ×2 (12:37→13:44)
[2018-01-10] MEDS ORDERED: *HR* FentaNYL (PF) 100 MCG/2 ML VIAL ONE (12:37)
[2018-01-10] MEDS ORDERED: Propofol 500 MG/50 ML INFUS..BTL ONE ×2 (12:37→15:27)
[2018-01-10] MEDS ORDERED: Ondansetron 4 MG/2 ML VIAL ONE (12:37)
[2018-01-10] MEDS ORDERED: ROPIVACAINE HCL/PF 0.5% 30 ML VIAL ONE (13:39)
[2018-01-10] MEDS ORDERED: Dexmedetomidine HCl 400 MCG/100 ML MLS IVC ONE (13:50)
--- NOTE | 2018-01-10 13:54 | Anesthesia Evaluation PreOp ---
Date of Encounter: 01/10/18 Time of Encounter: 13:50 - Past History Planned Operation: ORIF L distal radius Cardiac History: Arrhythmia (Has palpitations from time to time, multiple foci according to her. No other cardiac issues.) Pulmonary History: COPD (Has never smoked. COPD from second hand smoke. 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: Seizures (Hx of grand mal seizures controlled.), Other (Has dilaudid IT pump for chronic pain secondary to pancreatitis.) Other Medical History: Thyroid (hypothyroid), Other (chronic pancreatitis, chronic hyponatremia, sodium currenly 127, up from 124, on sodium tablet supplementation) Anesthesia History: No Prior Anesthetic Complications, Past Anesthesia Alcohol Use: none Drug use: none Medications and Allergies Albuterol Neb [Proventil Neb] 2.5 mg IH Q4-6H PRN 10/02/17 [History] Albuterol Sulfate [Proair Hfa] 2 puff IH Q6H PRN 10/02/17 [History] Aspirin Enteric Coated [Aspirin EC] 81 mg PO DAILY 10/02/17 [History] Calcium Carbonate [Tums] 500 mg PO QID PRN 10/02/17 [History] Calcium Crb,Cit/D3/Min34/Lluvia [Citracal + Bone Density Tablet] 1 tab PO DAILY 10/02/17 [History] Fluticasone/Salmeterol [Advair 250-50 Diskus] 1 puff IH BID 10/02/17 [History] HYDROmorphone [Dilaudid] 4 mg PO QID PRN 10/02/17 [History] Levothyroxine [Synthroid] 88 mcg PO DAILY 10/02/17 [History] Lidocaine Viscous Oral Soln 10 ml MM QID 10/02/17 [History] Lipase/Protease/Amylase [Luis Miguel Sousa 24,000 Units Capsule] 1 cap PO TIDWM 10/02/17 [History] Lisinopril 30 mg PO DAILY 10/02/17 [History] Modafinil [Provigil] 100 mg PO DAILY 10/02/17 [History] Multivitamin [One Daily Essential] 1 each PO DAILY 10/02/17 [History] Nitroglycerin [Nitrostat] 0.4 mg SL Q5M PRN 10/02/17 [History] Nystatin POWDER [Nystop] 1 appl TP TID PRN 10/02/17 [History] Ondansetron HCl [Zofran] 4 mg PO Q6H PRN 10/02/17 [History] Oxygen 2 l NS AD 10/02/17 [History] Potassium Chloride [Klor-Con 10] 10 meq PO DAILY PRN 10/02/17 [History] Psyllium Husk [Metamucil] 0.52 gm PO DAILY 10/02/17 [History] Sucralfate [Carafate] 1 gm PO QID 10/02/17 [History] Tamsulosin [Flomax] 0.4 mg PO DAILY 10/02/17 [History] diazePAM [Valium] 5 mg PO TID PRN 10/02/17 [History] lamoTRIgine [Lamictal] 100 mg PO HS 10/02/17 [History] Cyclobenzaprine [Flexeril] 10 mg PO TID PRN #15 tablet 12/14/17 [Rx] Acetaminophen [Tylenol] 650 mg PO Q6HR 01/08/18 [History] Esomeprazole Magnesium [Nexium] 40 mg PO Q12H 01/08/18 [History] Furosemide [Lasix] 40 mg PO DAILY 01/08/18 [History] LORazepam [Ativan] 1 mg PO TID 01/08/18 [History] Lidocaine Patch [Lidoderm 5% patch] 1 patch TP DAILY 01/08/18 [History] Metoprolol Succinate [Toprol Xl] 50 mg PO DAILY 01/08/18 [History] Promethazine [Phenergan] 25 mg PO Q6HR 01/08/18 [History] Spironolactone [Aldactone] 25 mg PO DAILY 01/08/18 [History] amLODIPine [Norvasc] 5 mg PO DAILY 01/08/18 [History] 3 Allergy/AdvReac Type Severity Reaction Status Date / Time ketorolac [From Toradol] Allergy Gastrointestinal Verified 01/08/18 10:38 Upset metronidazole [From Flagyl] Allergy Rash Verified 01/08/18 10:38 Penicillins [PCN] Allergy Hives Verified 01/08/18 10:38 prochlorperazine Allergy Dizziness Verified 01/08/18 10:38 [From Compazine] Sulfa (Sulfonamide Allergy Hives Verified 01/08/18 10:38 Antibiotics) tramadol Allergy Seizure Verified 01/08/18 10:38 Verapamil Allergy Itching Verified 01/08/18 10:38 - Meds/Allergy Pre-op Review Medications Reviewed: Yes Allergies Reviewed: Yes Beta Blockers on Current Med List: No Anesthesia Results - Labs 01/10/18 05:55 01/10/18 05:55 Laboratory Tests 01/10/18 01/10/18 05:55 05:55 WBC 5.1 Hgb 10.7 L Hct 31.0 L Sodium 127 L Potassium 3.9 Chloride 94 L Carbon Dioxide 28 BUN 7 L Creatinine 0.43 L - Imaging Additional studies: ECHO 65%, mild diastolic dysfunction Anesthesia Exam Selected Entries 01/10/18 11:16 Temperature 97.7 F Pulse Rate 87 Respiratory Rate 16 Blood Pressure 135/86 O2 Sat by Pulse Oximetry 97 Oxygen Flow Rate (LPM) 2 Weight: 63 kg. NPO (# of Hours): over 8 hours - HEENT Pupil (Motor): Pupils equal Mallampati: II Denture Type: Upper: Complete Oral Opening: Greater than 3 - Cardiac Rhythm: Regular Murmur: None - Pulmonary Breath Sounds: bilateral Clear Respiratory Effort: Symmetrical Anesthesia Assess/Plan ASA Score: 3 Modified [place] Scale for Level of Consciousness: Cooperative, oriented, and tranquil Anesthetic Plan: Regional, MAC Monitoring Plan: Standard Monitors Recovery Plan: PACU (Discussed anesthesia options with patient. She has NO objection to general anesthetic if needed, but we will attempt surgery with supraclavicular block and sedation. Patient at moderately high risk due to her multiple co-morbidities. She is aware and wishes to proceed.)
[2018-01-10] MEDS ORDERED: Bupivacaine/Clonidine Syringe 1 EACH SYRINGE ONE (14:15)
[2018-01-10] MEDS ORDERED: Clindamycin 900 MG/50 ML 900 MG/50 ML IV.SOLN IVPB ONE (14:40)
--- NOTE | 2018-01-10 14:56 | Discharge Summary ---
Outpatient Proc Discharge Plan - Plan Additional Instructions: Do not remove splint Elevate hand. Move fingers and thumb, making sure to make a full fist Use ice for 1 to 2 hour 3 times a day for the next 2 days. No lifting with the operative hand No sports or gym activities follow-up in 1 week with Stephy Llanes PA-C Prescriptions: OxyCODONE/APAP 5/325 [Percocet 5/325 MG] 1 each PO Q6HR PRN 7 Days #28 tablet PRN Reason: Pain Home Medications: Albuterol Neb [Proventil Neb] 2.5 mg IH Q4-6H PRN 10/02/17 [History] Albuterol Sulfate [Proair Hfa] 2 puff IH Q6H PRN 10/02/17 [History] Aspirin Enteric Coated [Aspirin EC] 81 mg PO DAILY 10/02/17 [History] Calcium Carbonate [Tums] 500 mg PO QID PRN 10/02/17 [History] Calcium Crb,Cit/D3/Min34/Lluvia [Citracal + Bone Density Tablet] 1 tab PO DAILY 10/02/17 [History] Fluticasone/Salmeterol [Advair 250-50 Diskus] 1 puff IH BID 10/02/17 [History] HYDROmorphone [Dilaudid] 4 mg PO QID PRN 10/02/17 [History] Levothyroxine [Synthroid] 88 mcg PO DAILY 10/02/17 [History] Lidocaine Viscous Oral Soln 10 ml MM QID 10/02/17 [History] Lipase/Protease/Amylase [Luis Miguel Sousa 24,000 Units Capsule] 1 cap PO TIDWM 10/02/17 [History] Lisinopril 30 mg PO DAILY 10/02/17 [History] Modafinil [Provigil] 100 mg PO DAILY 10/02/17 [History] Multivitamin [One Daily Essential] 1 each PO DAILY 10/02/17 [History] Nitroglycerin [Nitrostat] 0.4 mg SL Q5M PRN 10/02/17 [History] Nystatin POWDER [Nystop] 1 appl TP TID PRN 10/02/17 [History] Ondansetron HCl [Zofran] 4 mg PO Q6H PRN 10/02/17 [History] Oxygen 2 l NS AD 10/02/17 [History] Potassium Chloride [Klor-Con 10] 10 meq PO DAILY PRN 10/02/17 [History] Psyllium Husk [Metamucil] 0.52 gm PO DAILY 10/02/17 [History] Sucralfate [Carafate] 1 gm PO QID 10/02/17 [History] Tamsulosin [Flomax] 0.4 mg PO DAILY 10/02/17 [History] diazePAM [Valium] 5 mg PO TID PRN 10/02/17 [History] lamoTRIgine [Lamictal] 100 mg PO HS 10/02/17 [History] Cyclobenzaprine [Flexeril] 10 mg PO TID PRN #15 tablet 12/14/17 [Rx] Acetaminophen [Tylenol] 650 mg PO Q6HR 01/08/18 [History] Esomeprazole Magnesium [Nexium] 40 mg PO Q12H 01/08/18 [History] Furosemide [Lasix] 40 mg PO DAILY 01/08/18 [History] LORazepam [Ativan] 1 mg PO TID 01/08/18 [History] Lidocaine Patch [Lidoderm 5% patch] 1 patch TP DAILY 01/08/18 [History] Metoprolol Succinate [Toprol Xl] 50 mg PO DAILY 01/08/18 [History] Promethazine [Phenergan] 25 mg PO Q6HR 01/08/18 [History] Spironolactone [Aldactone] 25 mg PO DAILY 01/08/18 [History] amLODIPine [Norvasc] 5 mg PO DAILY 01/08/18 [History] OxyCODONE/APAP 5/325 [Percocet 5/325 MG] 1 each PO Q6HR PRN 7 Days #28 tablet [Rx]
[2018-01-10] MEDS ORDERED: *HR* OxyCODONE Immed Rel 5 MG TABLET PO PRN (15:15)
[2018-01-10] MEDS ORDERED: Ondansetron 4 MG/2 ML VIAL IVP ONE (15:15)
[2018-01-10] MEDS ORDERED: *HR* HYDROmorphone (PF) 1 MG/ML SYRINGE IVP PRN (15:15)
--- NOTE | 2018-01-10 15:21 | Anesthesia Procedures ---
Date of Encounter: 01/10/18 Time of Encounter: 14:15 Procedures: Anesthesia - Nerve Block Procedure Date: 01/10/18 Time: 14:15 Allergies/Adv Reactions: Allergies Allergy/AdvReac Type Severity Reaction Status Date / Time ketorolac [From Toradol] Allergy Gastrointestinal Verified 01/08/18 10:38 Upset metronidazole [From Flagyl] Allergy Rash Verified 01/08/18 10:38 Penicillins [PCN] Allergy Hives Verified 01/08/18 10:38 prochlorperazine Allergy Dizziness Verified 01/08/18 10:38 [From Compazine] Sulfa (Sulfonamide Allergy Hives Verified 01/08/18 10:38 Antibiotics) tramadol Allergy Seizure Verified 01/08/18 10:38 Verapamil Allergy Itching Verified 01/08/18 10:38 Pre-op Diagnosis: left distal radius fracture Surgical Procedure: left distal radius ORIF Checklist: Correct Patient Identifier, Correct procedure, History checked Correct side: Left Blood Thinner: No Monitor Applied: BP, Pulse Oximetry Supplemental Oxygen via Nasal Cannula (L/min): 2 Sedation: Versed (mg): 2 Sedation: Fentanyl (mcg): 100 Indication: Post Op Analgesia Pre-op Neuro Deficits: Yes (left leg weakness ) Block Type: Supraclavicular Catheter placed: No Blood on Needle Aspiration: No Smooth Injection of Local: Yes Prep: Chlorhexadine Needle: 22 x 50 mm Stimuplex Local: 0.25% Bupivicaine w/Clonidine 20 mcg/cc, Ropivacaine Volume (cc): 50 ml Number of Attempts: 1 Complications: None/effective block Vitals: Vital Signs Temperature 97.6 F 01/07/18 20:44 Pulse Rate 82 01/07/18 20:44 Respiratory Rate 16 01/07/18 20:44 Blood Pressure 166/88 01/07/18 20:44 O2 Sat by Pulse Oximetry 99 01/07/18 20:44 Temperature 97.7 F 01/10/18 11:16 Pulse Rate 100 01/10/18 13:53 Respiratory Rate 16 01/10/18 13:53 Blood Pressure 158/95 01/10/18 13:53 O2 Sat by Pulse Oximetry 97 01/10/18 13:53 Oxygen Delivery Oxygen Delivery Nasal Cannula Vital Signs Vital Signs Assessment Start: 01/07/18 20:47 Freq: Status: Active Protocol: Activity Type Activity Date Activity User E-Sign Co-Sign Detail Recorded Client Recorded Date Recorded By [employer] 01/07/18 20:47 System [id number] 01/07/18 20:47 System Document 01/07/18 23:21 MPS [id number] 01/07/18 23:22 MPS Document 01/08/18 01:11 MPS [id number] 01/08/18 01:12 [facility] 01/07/18 01/08/18 23:21 01:11 ED Vital Signs [Pain] -Pain Reported Pain Reported Pain Reported -Pain Scale 3 9 -Pain Scale Used Standard (1-10) Standard (1-10) -Pain Description Ache [Blood Pressure] -Blood Pressure 142/78 155/96 -Blood Pressure Location Right Arm Right Arm -Position HOB Elevated HOB Elevated [Pulse] -Pulse Rate 79 98 -Rhythm Regular Regular [Respirations] -Respiratory Rate 16 -Depth Normal -Effort Spontaneous Non-Labored -Pattern Regular [Oxygen Delivery] -Pulse Oximetry 100 -Oxygen Delivery Room Air Vital Signs Assessment Start: 01/08/18 03:00 Freq: Q4H Status: Active Protocol: Activity Type Activity Date Activity User E-Sign Co-Sign Detail Recorded Client Recorded Date Recorded By [employer] 01/08/18 03:01 [id number] 01/08/18 03:01 [id number] Document 01/08/18 03:26 [facility] [id number] 01/08/18 03:27 [facility] 01/08/18 03:26 Vital Signs with MEWS [Temperature] -Temperature (97.6 F-99.6 F) 97.8 F -Temperature Source Oral [Pulse] -Pulse Rate 89 [Respirations] -Respiratory Rate 17 -Pulse Oximetry 96 -Oxygen Delivery Method Nasal Cannula -Oxygen Flow Rate (LPM) 2 [Blood Pressure] -Blood Pressure 164/92 -Blood Pressure Location Right Arm -Source Automatic Cuff -Position HOB Elevated [MEWS Score] -Neuro Status *recalled from last Alert documentation -MEWS Score 1 Vital Signs Assessment Start: 01/08/18 04:54 Freq: Q4H Status: Active Protocol: Activity Type Activity Date Activity User E-Sign Co-Sign Detail Recorded Client Recorded Date Recorded By [employer] 01/08/18 04:59 [id number] 01/08/18 04:59 BKG DAEMON Document 01/08/18 09:11 EKB [id number] 01/08/18 09:13 EKB Document 01/08/18 11:55 LIZETH [id number] 01/08/18 11:57 LIZETH Document 01/08/18 15:25 EKB [id number] 01/08/18 15:26 EKB Document 01/08/18 19:15 DKH [id number] 01/08/18 19:16 DKH Document 01/08/18 23:59 DKH [id number] 01/09/18 00:01 DKH Document 01/09/18 03:56 DKH [id number] 01/09/18 03:58 DKH Document 01/09/18 07:29 TFB [id number] 01/09/18 07:31 TFB Document 01/09/18 07:34 TFB [id number] 01/09/18 07:35 TFB Document 01/09/18 11:46 TFB [id number] 01/09/18 11:53 TFB Document 01/09/18 15:29 TFB [id number] 01/09/18 15:31 TFB Document 01/09/18 20:11 DKH [id number] 01/09/18 20:12 DKH Document 01/09/18 23:35 DKH [id number] 01/09/18 23:36 DKH Document 01/10/18 03:59 DKH [id number] 01/10/18 04:02 DKH Document 01/10/18 06:49 VVP [id number] 01/10/18 06:58 VVP Document 01/10/18 11:16 VVP [id number] 01/10/18 11:17 VVP 01/08/18 01/08/18 01/08/18 09:11 11:55 15:25 Vital Signs with MEWS [Temperature] -Temperature (97.6 F-99.6 F) 97.4 F L 97.9 F 97.9 F -Temperature Source Oral Oral Oral [Pulse] -Pulse Rate 89 92 88 [Respirations] -Respiratory Rate 17 16 18 -Pulse Oximetry 95 96 98 -Oxygen Delivery Method Room Air Nasal Cannula Nasal Cannula -Oxygen Flow Rate (LPM) 2 2 [Blood Pressure] -Blood Pressure 167/86 169/83 147/81 -Blood Pressure Location Right Arm Right Arm Right Arm -Source Automatic Cuff Automatic Cuff Automatic Cuff -Position HOB Elevated Supine HOB Elevated [MEWS Score] -Neuro Status *recalled from last Alert Alert Alert documentation -MEWS Score 1 1 1 01/08/18 01/08/18 01/09/18 19:15 23:59 03:56 Vital Signs with MEWS [Temperature] -Temperature (97.6 F-99.6 F) 97.8 F 98.1 F 98.1 F -Temperature Source Oral Oral Oral [Pulse] -Pulse Rate 86 88 71 [Respirations] -Respiratory Rate 17 17 17 -Pulse Oximetry 99 100 98 -Oxygen Delivery Method Room Air Nasal Cannula Nasal Cannula -Oxygen Flow Rate (LPM) 2 [Blood Pressure] -Blood Pressure 131/73 153/77 145/68 -Blood Pressure Location Right Arm Right Arm Left Arm -Source Automatic Cuff Automatic Cuff Automatic Cuff -Position HOB Elevated HOB Elevated HOB Elevated [MEWS Score] -Neuro Status *recalled from last Alert Alert Alert documentation -MEWS Score 1 1 1 01/09/18 01/09/18 01/09/18 07:29 07:34 11:46 Vital Signs with MEWS [Temperature] -Temperature (97.6 F-99.6 F) 97.8 F 97.8 F 98.0 F -Temperature Source Oral Oral Oral [Pulse] -Pulse Rate 80 80 77 [Respirations] -Respiratory Rate 22 22 20 -Pulse Oximetry 98 98 100 -Oxygen Delivery Method Nasal Cannula Nasal Cannula Nasal Cannula -Oxygen Flow Rate (LPM) 2 2 2 [Blood Pressure] -Blood Pressure 148/88 145/77 -Blood Pressure Location Right Arm Right Arm Right Arm -Source Automatic Cuff Automatic Cuff Automatic Cuff -Position Sitting Sitting Sitting [MEWS Score] -Neuro Status *recalled from last Alert Alert Alert documentation -MEWS Score 2 1 01/09/18 01/09/18 01/09/18 15:29 20:11 23:35 Vital Signs with MEWS [Temperature] -Temperature (97.6 F-99.6 F) 99.0 F 97.8 F 97.5 F L -Temperature Source Oral Oral Oral [Pulse] -Pulse Rate 81 71 89 [Respirations] -Respiratory Rate 21 17 17 -Pulse Oximetry 99 100 96 -Oxygen Delivery Method Nasal Cannula Nasal Cannula Nasal Cannula -Oxygen Flow Rate (LPM) 2 2 2 [Blood Pressure] -Blood Pressure 139/82 128/77 164/92 -Blood Pressure Location Left Radial Right Arm Right Arm Artery -Source Automatic Cuff Automatic Cuff Automatic Cuff -Position Sitting HOB Elevated HOB Elevated [MEWS Score] -Neuro Status *recalled from last Alert Alert Alert documentation -MEWS Score 2 1 1 01/10/18 01/10/18 01/10/18 03:59 06:49 11:16 Vital Signs with MEWS [Temperature] -Temperature (97.6 F-99.6 F) 97.9 F 97.8 F 97.7 F -Temperature Source Oral Oral Oral [Pulse] -Pulse Rate 82 80 87 [Respirations] -Respiratory Rate 17 16 16 -Pulse Oximetry 100 98 97 -Oxygen Delivery Method Nasal Cannula Nasal Cannula Nasal Cannula -Oxygen Flow Rate (LPM) 2 2 [Blood Pressure] -Blood Pressure 168/94 148/81 135/86 -Blood Pressure Location Right Arm Left Arm Left Arm -Source Automatic Cuff Automatic Cuff Automatic Cuff -Position HOB Elevated Supine Supine [MEWS Score] -Neuro Status *recalled from last Alert Alert Alert documentation -MEWS Score 1 1 1 Temp Pulse Resp BP Pulse Ox 01/10/18 13:53 100 16 158/95 97 01/10/18 11:16 97.7 F 87 16 135/86 97 01/10/18 07:30 16 99 01/10/18 06:49 97.8 F 80 16 148/81 98 01/10/18 03:59 97.9 F 82 17 168/94 100 01/09/18 23:35 97.5 F L 89 17 164/92 96 01/09/18 20:11 97.8 F 71 17 128/77 100 01/09/18 19:47 18 99 01/09/18 15:29 99.0 F 81 21 139/82 99 01/09/18 11:46 98.0 F 77 20 145/77 100 01/09/18 07:34 97.8 F 80 22 98 01/09/18 07:29 97.8 F 80 22 148/88 98 01/09/18 03:56 98.1 F 71 17 145/68 98 01/08/18 23:59 98.1 F 88 17 153/77 100 06/26/18 19:49 18 98 01/08/18 19:15 97.8 F 86 17 131/73 99 01/08/18 15:25 97.9 F 88 18 147/81 98 01/08/18 11:55 97.9 F 92 16 169/83 96 01/08/18 10:20 17 98 01/08/18 09:11 97.4 F L 89 17 167/86 95 01/08/18 03:26 97.8 F 89 17 164/92 96 01/08/18 02:45 98 F 16 148/84 01/08/18 01:11 98 155/96 01/07/18 23:21 79 16 142/78 100 01/07/18 21:33 97.6 F 82 16 166/88 99 01/07/18 20:44 97.6 F 82 16 166/88 99 Comments: see nurses notes for vital signs
--- NOTE | 2018-01-10 18:47 | Anesthesia Evaluation Post Op ---
Date of Encounter: 01/10/18 Time of Encounter: 18:10 - Vital Signs Vital Signs: Vital Signs Temp Pulse Resp BP Pulse Ox 01/10/18 18:03 97.7 F 70 16 134/83 100 01/10/18 17:19 97.6 F 78 16 154/88 100 01/10/18 16:53 97.8 F 73 16 136/84 100 01/10/18 16:43 77 16 139/85 99 01/10/18 16:33 73 16 122/80 100 01/10/18 16:23 97.2 F L 69 14 130/81 100 01/10/18 13:53 100 16 158/95 97 01/10/18 11:16 97.7 F 87 16 135/86 97 01/10/18 07:30 16 99 01/10/18 06:49 97.8 F 80 16 148/81 98 01/10/18 03:59 97.9 F 82 17 168/94 100 01/09/18 23:35 97.5 F L 89 17 164/92 96 01/09/18 20:11 97.8 F 71 17 128/77 100 01/09/18 19:47 18 99 Intake and Output 01/10/18 01/10/18 01/10/18 07:59 15:59 23:59 Intake Total 0 / 0 0 / 0 Output Total 1100 / 1100 203 / 203 Balance -1100 / -1100 -203 / -203 Intake: Oral 0 / 0 0 / 0 Output: Urine 1100 / 1100 200 / 200 Estimated Blood Loss 3 / 3 Other: Meal npo - Lungs Lungs: Clear Ascult./Percussion - Airway Airway: Non-obstructed - Cardiovascular Regular Rate - Mental Status Mental Status: Alert & Oriented, Answers Appropriately - Pain Pain Scale: 3 Pain Scale used: Numeric (1 - 10) - Nausea Vomiting Nausea Vomiting: Not Present - Hydration Hydration: Tolerates oral liquids, Has not voided - Discharge PostOp Status: Transfer Patient to floor Anes Supervising Prov Stmt: Pt seen/evaluated, VSS and pt has met criteria for discharge to floor. - MD Roro
[2018-01-10] MEDS ORDERED: Naloxone 0.4 MG/ML INJ IVP PRN (19:40)
[2018-01-10] MEDS ORDERED: Acetaminophen 325 MG TABLET PO PRN (19:40)
[2018-01-10] MEDS ORDERED: Albuterol 2.5 MG/3 ML NEBULIZER IH PRN (19:40)
[2018-01-10] MEDS: lamoTRIgine 100 MG TABLET PO SCH (21:25)
[2018-01-11 02:40] LABS: Basophils % 0.1 %; Hemoglobin 11.5 g/dL (11.5-15.4); Immature Granulocytes % 0.4 % (0-4); Immature Platelets 3.2 % (1.1-6.1); Lymphocytes # 0.5 K/mcL (0.6-4.6); Lymphocytes % 6.2 %; Mean Corpuscular HGB Conc 35.9 g/dL (31.6-35.5); Mean Corpuscular Volume 94.7 fL (83.0-100.0); Mean Platelet Volume 9.4 fL (9.4-12.4); Monocytes # 0.2 K/mcL (0.0-1.3); Monocytes % 2.7 %; Neutrophils # 7.7 K/mcL (1.6-8.9); Platelet Count 246 K/mcL (140-400); Red Blood Count 3.38 M/mcL (3.82-4.97); Red Cell Distribution Width 11.3 % (11.5-14.5); Segmented Neutrophils % 90.6 %
[2018-01-11 02:56] LABS: BUN/Creatinine Ratio 22 (6-26); Blood Urea Nitrogen 10 mg/dL (8-23); Calcium 9.4 mg/dL (8.6-10.3); Carbon Dioxide 27 mEq/L (23-29); Chloride 95 mEq/L (98-107); Glucose 146 mg/dL (70-105); Osmolality,Calculated 270 (280-300); Potassium 4.3 mEq/L (3.5-5.1); Sodium 129 mEq/L (136-145); eGFR For African Americans > 60 (> 60); eGFR For Non-African Americans > 60 (> 60)
[2018-01-11] MEDS: *HR* OxyCODONE/APAP 5/325 TABLET PO PRN ×3 (06:00→21:40)
[2018-01-11] MEDS: *HR* Heparin 5,000 UNIT/ML VIAL SQ SCH ×2 (06:00→17:20)
[2018-01-11] MEDS ORDERED: diazePAM 5 MG TABLET PO ONE (06:17)
[2018-01-11] MEDS: Budesonide/Formoterol 80/4.5 MDI IH SCH ×2 (07:43→20:35)
[2018-01-11] MEDS ORDERED: *HR* PHENYLEPHRINE 1,000 MCG/10 ML SYRINGE IVP ONE (08:02)
--- NOTE | 2018-01-11 08:06 | Operative Note ---
Date of procedure: 01/10/18 Pre-op diagnosis: Left distal radius intra-articular fracture, 3+ distal fragments Post-op diagnosis: same Procedure: Left wrist open reduction internal fixation of distal radius Implants: [employer] system Anesthesia: MAC, regional Surgeon: Leo Ricci Was there an medical receptionist assistant present: Yes Mortgage Lender: Stephy Llanes Estimated blood loss (cc): 5 Tourniquet Time (Minutes): 54 Specimen: 0 Condition: stable Disposition: same day Procedure in Detail: The patient received IV antibiotics in the holding area and also underwent an axillary block by the anesthesia department. The patient was brought into the operating room and placed on the OR table in supine position with the affected upper extremity in a hand table. The patient received MAC. A tourniquet was placed on the arm close axilla and the upper extremity was then prepped and draped in usual sterile fashion. A timeout was performed. The extremity was then elevated, exsanguinated with an Dimitry wrap and the tourniquet was raised to a pressure of 250 mmHg. A 6 cm longitudinal incision was made over the volar radial aspect of the wrist , directly over the FCR tendon ending at the distal wrist flexion crease. The FCR sheath was split down the midline, the tendon was retracted over medially and the base of the sheath was also split the midline. The deep fascia and the FPL muscle/tendon was also retraction medially exposing the pronator quadratus. This was then elevated off in an L-shaped manner subperiosteally, exposing the fracture site. The patient has a mild comminution and metaphyseal region. The volar fragment was elevated. [place] DBM/cancellus crushed bone graft putty was packed into the metaphyseal bone. There were several small intra-articular extensions, but for the most part distal fragments held together well and reduced easily. A lamina pond supervisor was also used to restore the alignment of the radial shaft. Next a 4 hole left sided narrow plate was applied to the volar surface and secured with a bone screw through the slotted hole. Once we had appropriate position plate, it was further secured with a locking screw in hole #4 in the metaphyseal bone. The distal fragment was held against the plate restoring the volar tilt, and a locking screw was placed in a distal central hole maintaining the alignment. This screw was angled ulnarly since was a large split, directly beneath it. The remaining screw holes were then filled with locking screws in standard technique using variable angle as necessary.. We checked screw position with live fluoroscopy. The remaining holes in the shaft of the plate were then filled with locking screws in standard technique. Final fluoroscopy shots were taken and saved; checking in AP, lateral, facet views, and a 45 degree supination view making sure the screws were not within the joint. Once satisfactory, the wound was irrigated with normal saline and the pronator quadratus was tacked back down in place with 3-0 Vicryl [id number] sutures. The tourniquet was deflated, once again irrigating the wound and obtaining hemostasis with the bipolar electrocautery. The skin incision was closed with 5-0 nylon mattress and simple sutures. Sterile dressings were applied and the patient placed into a sugar tong splint. Patient was taken to the recovery room in stable condition. The patient will be seen at postoperative week #1 for dressing changes and placed into a short arm cast.
[2018-01-11] MEDS ORDERED: Furosemide 20 MG TABLET PO SCH (09:00)
[2018-01-11] MEDS: Aspirin Enteric Coated 81 MG Tablet PO SCH (09:02)
[2018-01-11] MEDS: DILAUDID PAIN PUMP SQ SCH (09:05)
--- NOTE | 2018-01-11 10:46 | Internal Med Progress Note ---
Date of Encounter: 01/11/18 Time of Encounter: 08:40 - Assessment and plan (1) Frequent falls Current Visit: Yes Status: Acute Assessment and plan: PT eval prior to discharge (2) Hyponatremia Current Visit: Yes Status: Chronic Assessment and plan: Chronic. Improving Back to baseline Continue sodium pills by mouth. continue to monitor chem (3) Wrist fracture, left Current Visit: Yes Status: Acute Assessment and plan: managment per ortho, POD 1 Qualifiers: Encounter type: initial encounter Fracture type: closed Qualified Code(s) : S62.102A - Fracture of unspecified carpal bone, left wrist, initial encounter for closed fracture (4) Right leg swelling Current Visit: Yes Status: Acute Assessment and plan: DVT ruled out (5) Syncope Current Visit: Yes Status: Acute Assessment and plan: Work up negative Head CT, ECHO, Carotid doppler, without active issues continue tele PT eval Qualifiers: Syncope type: unspecified Qualified Code(s): R55 - Syncope and collapse (6) COPD (chronic obstructive pulmonary disease) Current Visit: Yes Status: Chronic Assessment and plan: No wheezing, continue home medications Qualifiers: COPD type: emphysema Emphysema type: unspecified Qualified Code(s): J43.9 - Emphysema, unspecified (7) Hypertension Current Visit: Yes Status: Chronic Assessment and plan: Continue home medications Qualifiers: Hypertension type: essential hypertension Qualified Code(s): I10 - Essential (primary) hypertension (8) DVT prophylaxis Current Visit: Yes Status: Acute Assessment and plan: Heparin subcutaneously (9) Anemia Current Visit: Yes Status: Chronic Assessment and plan: hb stable Qualifiers: Anemia type: unspecified type Qualified Code(s): D64.9 - Anemia, unspecified - Time Spent With Patient Total time spent is greater than 50% in coordination of care (as documented) at patient's floor/unit and/or counseling patient: - Subjective Interval history: 67 F with OP, chronic pancreatitis, chronic pain with an intrathecal pump, chronic hyponatremia, seizure disorder, copd, HTN Seen and evaluated at bedside POD#1 s/p left DR ORIF 01/10/18 Hb stable, electrolyte stable, no new complains Awaiting PT eval for recurrent falls - Constitutional Vitals: Temp Pulse Resp BP Pulse Ox 98.1 F 91 16 150/97 97 01/11/18 06:27 01/11/18 06:27 01/11/18 07:44 01/11/18 06:27 01/11/18 09:30 General appearance: Present: A&O X 3, no acute distress, answers questions appropriately - Head Head exam: Present: atraumatic, normocephalic - Eye Eye exam: Present: PERRL, conjuntiva pink, sclera anicteric Pupils: Present: PERRL - Neck Neck exam general surgery: Present: supple, trachea midline. Absent: lymphadenopathy - Respiratory Respiratory exam: Present: CTAB. Absent: accessory muscle use, rales, rhonchi, wheezes - Cardiovascular Cardiovascular exam: Present: RRR, +S1, +S2. Absent: diastolic murmur, gallop, rubs, systolic murmur - GI/Abdominal GI/Abdominal exam: Present: normal bowel sounds, soft, no peritoneal signs. Absent: distended, tenderness - Extremities Exam Extremities exam: Present: warm, radial pulses palpable and symmetrical. Absent : calf tenderness, cyanotic, pedal edema Additional comments: L arm in sling, neurovascularly intact - Neurological Exam Neurological exam: Present: alert, CN II-XII intact, oriented X3, no focal deficits. Absent: pronater drift, facial droop, speech deficit - Skin Skin exam: Present: dry, intact Internal Medicine: Result - Labs CBC & Chem 7: 01/11/18 02:17 01/11/18 02:17 Labs: Short CBC 01/11/18 Range/Units 02:17 WBC 8.5 D (4.3-11.1) K/mcL Hgb 11.5 (11.5-15.4) g/dL Hct 32.0 L (35.3-44.9) % Plt Count 246 (140-400) K/mcL Neutrophils # 7.7 (1.6-8.9) K/mcL BMP 01/11/18 02:17 Sodium 129 L Potassium 4.3 Chloride 95 L Carbon Dioxide 27 BUN 10 Creatinine 0.46 L Glucose 146 H Calcium 9.4 - ABG Interpretation ABG results: PT/INR, D-dimer PT 10.7 Seconds (9.4-12.1) 01/10/18 07:45 - Impressions Impressions Fluoroscopy 01/10/18 15:00 IMPRESSION: Intraprocedural fluoroscopic spot images as above. See separate procedure report for more information. D/ / Trino West MD / Trino West MD Interpreting Provider: Trino West MD - VTE Documentation of Mechanical Device: Intermittent pneumatic compression device Consult Discharge Plan - Plan Additional Instructions: Do not remove splint Elevate hand. Move fingers and thumb, making sure to make a full fist Use ice for 1 to 2 hour 3 times a day for the next 2 days. No lifting with the operative hand No sports or gym activities follow-up in 1 week with Stephy Llanes PA-C Referrals: Lance Marcos MD [Primary Care Provider] - 01/17/18 2:45 pm (Please follow as schedule....) Prescriptions: OxyCODONE/APAP 5/325 [Percocet 5/325 MG] 1 each PO Q6HR PRN 7 Days #28 tablet PRN Reason: Pain
--- NOTE | 2018-01-11 13:02 | Orthopedics Progress Note ---
Date of Encounter: 01/11/18 Time of Encounter: 12:15 - Assessment and Plan (1) Wrist fracture, left Current Visit: Yes Status: Acute POD#1 s/p left DR ORIF 01/10/18 Leave postop dressings/splint in place. Continue to ice and elevate. Sling for comfort. Move fingers and thumb, making sure to make a full fist Use ice for 1 to 2 hour 3 times a day for the next 2 days. No lifting with the operative hand Follow-up in 1 week with Stephy Llanes PA-C in [facility] office on 01/15/18. Office will fax appt card to floor. Orthopedics is signing off on her at this point. Hospitalist continuing to look into this patient's frequent fall. Call for any future concerns. Qualifiers: Encounter type: initial encounter Fracture type: closed Qualified Code(s) : S62.102A - Fracture of unspecified carpal bone, left wrist, initial encounter for closed fracture Subjective Principal diagnosis: POD#1 s/p left DR ORIF 01/10/18 Interval history: Patient denies any concerns with the surgical arm. States the nerve block is starting to wear off and she is getting sensation back now. States she has been working on moving her fingers. Her only complaint is her left thigh spasms. She did receive a muscle relaxer last night and she states this did help. Objective Vital signs: Vital Signs Temp Pulse Resp BP Pulse Ox 01/11/18 11:30 98.2 F 97 18 145/73 94 01/11/18 09:30 97 01/11/18 07:44 16 97 01/11/18 06:27 98.1 F 91 20 150/97 94 01/11/18 04:02 98.0 F 89 16 115/69 96 01/10/18 23:02 98.0 F 105 14 153/81 99 01/10/18 20:30 85 145/79 94 01/10/18 20:15 15 94 01/10/18 19:30 98.0 F 79 14 151/83 98 01/10/18 19:11 97.8 F 79 16 137/78 97 01/10/18 18:03 97.7 F 70 16 134/83 100 01/10/18 17:19 97.6 F 78 16 154/88 100 01/10/18 16:53 97.8 F 73 16 136/84 100 01/10/18 16:43 77 16 139/85 99 01/10/18 16:33 73 16 122/80 100 01/10/18 16:23 97.2 F L 69 14 130/81 100 01/10/18 13:53 100 16 158/95 97 Intake and Output 01/10/18 01/11/18 01/11/18 23:59 07:59 15:59 Intake Total 750 / 750 100 / 100 240 / 240 Output Total 0 / 0 0 / 0 Balance 750 / 750 100 / 100 240 / 240 Intake: Oral 750 / 750 100 / 100 240 / 240 Output: Urine 0 / 0 0 / 0 Other: Meal Breakfast Percent of Meal Consumed 75% # Voids 1 2 Incision: clean and dry (dressings/splint and sling to LUE is in place, no areas of rubbing at edges. good ROM of fingers, brisk cap refill. grossly NV intact) - Labs CBC & BMP: 01/11/18 02:17 01/11/18 02:17 Labs: Abnormal lab results RBC 3.38 M/mcL (3.82-4.97) L 01/11/18 02:17 Hct 32.0 % (35.3-44.9) L 01/11/18 02:17 MCH 34.0 pg (28.0-33.3) H 01/11/18 02:17 MCHC 35.9 g/dL (31.6-35.5) H 01/11/18 02:17 RDW 11.3 % (11.5-14.5) L 01/11/18 02:17 Lymphocytes # 0.5 K/mcL (0.6-4.6) L 01/11/18 02:17 APTT 36.4 Seconds (26.0-36.0) H 01/10/18 07:45 Sodium 129 mEq/L (136-145) L 01/11/18 02:17 Chloride 95 mEq/L (98-107) L 01/11/18 02:17 Creatinine 0.46 mg/dL (0.60-1.20) L 01/11/18 02:17 Glucose 146 mg/dL (70-105) H 01/11/18 02:17 Calculated Osmolality 270 (280-300) L 01/11/18 02:17 Alkaline Phosphatase 168 Units/L (34-104) H 01/07/18 22:54 - VTE Documentation of Mechanical Device: Intermittent pneumatic compression device Consult Discharge Plan - Plan Additional Instructions: Do not remove splint Elevate hand. Move fingers and thumb, making sure to make a full fist Use ice for 1 to 2 hour 3 times a day for the next 2 days. No lifting with the operative hand No sports or gym activities follow-up in 1 week with Stephy Llanes PA-C Referrals: Lance Marcos MD [Primary Care Provider] - 01/17/18 2:45 pm (Please follow as schedule....) Prescriptions: OxyCODONE/APAP 5/325 [Percocet 5/325 MG] 1 each PO Q6HR PRN 7 Days #28 tablet PRN Reason: Pain
[2018-01-11] MEDS: lamoTRIgine 100 MG TABLET PO SCH (21:40)
[2018-01-12] MEDS: *HR* OxyCODONE/APAP 5/325 TABLET PO PRN (03:30)
[2018-01-12] MEDS: *HR* Heparin 5,000 UNIT/ML VIAL SQ SCH (06:47)
[2018-01-12] MEDS: Aspirin Enteric Coated 81 MG Tablet PO SCH (08:11)
[2018-01-12] MEDS: Budesonide/Formoterol 80/4.5 MDI IH SCH (08:11)
[2018-01-12] MEDS: DILAUDID PAIN PUMP SQ SCH (08:11)
[2018-01-12 10:22] VITALS: BP 92/60
--- NOTE | 2018-01-12 10:48 | Physician Discharge Referral ---
Home Health/Hosp Referral Info Transfer to: Home Health Attending Provider: Alpesh Mercado Provider in Charge Post Discharge: PCP - Diagnosis (1) Frequent falls Priority: Primary Status: Acute (2) Hyponatremia Priority: Primary Status: Chronic (3) Wrist fracture, left Priority: Primary Status: Acute (4) Right leg swelling Priority: Primary Status: Resolved (5) Syncope Priority: Primary Status: Resolved (6) COPD (chronic obstructive pulmonary disease) Priority: Secondary Status: Chronic (7) Hypertension Priority: Secondary Status: Chronic (8) DVT prophylaxis Priority: Primary Status: Acute (9) Anemia Priority: Secondary Status: Chronic - Respiratory Orders Smoking Cessation: Smoking cessation has been advised. For more information, call the [employer] Tobacco Quit Line at 2-500-EFWM-NOW. - Diet/Nutrition Diet/Nutrition Orders: Cardiac - Activity Activity Orders: Up ad julisa - Services Needed Following services are medically necessary services: Nursing, Home Health Aide, Physical Therapy, Occupational Therapy - Transfer Medications Prescriptions: OxyCODONE/APAP 5/325 [Percocet 5/325 MG] 1 each PO Q6HR PRN 7 Days #28 tablet PRN Reason: Pain Home Medications: Albuterol Neb [Proventil Neb] 2.5 mg IH Q4-6H PRN 10/02/17 [History] Albuterol Sulfate [Proair Hfa] 2 puff IH Q6H PRN 10/02/17 [History] Aspirin Enteric Coated [Aspirin EC] 81 mg PO DAILY 10/02/17 [History] Calcium Carbonate [Tums] 500 mg PO QID PRN 10/02/17 [History] Calcium Crb,Cit/D3/Min34/Lluvia [Citracal + Bone Density Tablet] 1 tab PO DAILY 10/02/17 [History] Fluticasone/Salmeterol [Advair 250-50 Diskus] 1 puff IH BID 10/02/17 [History] HYDROmorphone [Dilaudid] 4 mg PO QID PRN 10/02/17 [History] Levothyroxine [Synthroid] 88 mcg PO DAILY 10/02/17 [History] Lidocaine Viscous Oral Soln 10 ml MM QID 10/02/17 [History] Lipase/Protease/Amylase [Lu[address] Dr 24,000 Units Capsule] 1 cap PO TIDWM 10/02/17 [History] Lisinopril 30 mg PO DAILY 10/02/17 [History] Modafinil [Provigil] 100 mg PO DAILY 10/02/17 [History] Multivitamin [One Daily Essential] 1 each PO DAILY 10/02/17 [History] Nitroglycerin [Nitrostat] 0.4 mg SL Q5M PRN 10/02/17 [History] Nystatin POWDER [Nystop] 1 appl TP TID PRN 10/02/17 [History] Ondansetron HCl [Zofran] 4 mg PO Q6H PRN 10/02/17 [History] Oxygen 2 l NS AD 10/02/17 [History] Potassium Chloride [Klor-Con 10] 10 meq PO DAILY PRN 10/02/17 [History] Psyllium Husk [Metamucil] 0.52 gm PO DAILY 10/02/17 [History] Sucralfate [Carafate] 1 gm PO QID 10/02/17 [History] Tamsulosin [Flomax] 0.4 mg PO DAILY 10/02/17 [History] diazePAM [Valium] 5 mg PO TID PRN 10/02/17 [History] lamoTRIgine [Lamictal] 100 mg PO HS 10/02/17 [History] Cyclobenzaprine [Flexeril] 10 mg PO TID PRN #15 tablet 12/14/17 [Rx] Acetaminophen [Tylenol] 650 mg PO Q6HR 01/08/18 [History] Esomeprazole Magnesium [Nexium] 40 mg PO Q12H 01/08/18 [History] Furosemide [Lasix] 40 mg PO DAILY 01/08/18 [History] LORazepam [Ativan] 1 mg PO TID 01/08/18 [History] Lidocaine Patch [Lidoderm 5% patch] 1 patch TP DAILY 01/08/18 [History] Metoprolol Succinate [Toprol Xl] 50 mg PO DAILY 01/08/18 [History] Promethazine [Phenergan] 25 mg PO Q6HR 01/08/18 [History] Spironolactone [Aldactone] 25 mg PO DAILY 01/08/18 [History] amLODIPine [Norvasc] 5 mg PO DAILY 01/08/18 [History] OxyCODONE/APAP 5/325 [Percocet 5/325 MG] 1 each PO Q6HR PRN 7 Days #28 tablet [Rx] Allergies/Adverse Reactions: 3 Allergy/AdvReac Type Severity Reaction Status Date / Time ketorolac [From Toradol] Allergy Gastrointestinal Verified 01/08/18 10:38 Upset metronidazole [From Flagyl] Allergy Rash Verified 01/08/18 10:38 Penicillins [PCN] Allergy Hives Verified 01/08/18 10:38 prochlorperazine Allergy Dizziness Verified 01/08/18 10:38 [From Compazine] Sulfa (Sulfonamide Allergy Hives Verified 01/08/18 10:38 Antibiotics) tramadol Allergy Seizure Verified 01/08/18 10:38 Verapamil Allergy Itching Verified 01/08/18 10:38 Certification: Further, I certify that my clinical findings support that this patient is homebound (i.e. absences from home require considerable and taxing effort and are for medical reasons or druze services or infrequently or short duration when for other reasons) because: Homebound Reason: Patient requires assistance of a person or device to safely leave home Attestation: My signature below is to certify that this patient is under my care and that I, or nurse practitioner, or a physician's assistant teacher primary working with me, has a face-to -face encounter with this patient.
--- NOTE | 2018-01-12 10:53 | Discharge Summary ---
- NOTES TO OUTPATIENT PROVIDER Notes to Outpatient Provider: Admitted following syncope and mechanical fall, patient with intrathecal pump and on multiple pain meds and BZP. Syncope work up negative, she sustained a radial and ulnar fracture is s/p ORIF. She also had hyponatremia (acute on chronic), hypomgnessemia, hypokalemia. All of these have returned to baseline. Follow up with pain physician, PCP, orthopedics. Orders not resulted at time of discharge: Pending orders 01/10/18 15:00 XR wrist complete 3V LT [XR] Routine Date of Encounter: 01/12/18 Time of Encounter: 08:35 - Discharge Diagnosis (1) Frequent falls Priority: Primary Status: Acute (2) Hyponatremia Priority: Primary Status: Chronic (3) Wrist fracture, left Priority: Primary Status: Acute Qualifiers: Encounter type: initial encounter Fracture type: closed Qualified Code(s) : S62.102A - Fracture of unspecified carpal bone, left wrist, initial encounter for closed fracture (4) Right leg swelling Priority: Primary Status: Resolved (5) Syncope Priority: Primary Status: Resolved Qualifiers: Syncope type: unspecified Qualified Code(s): R55 - Syncope and collapse (6) COPD (chronic obstructive pulmonary disease) Priority: Secondary Status: Chronic Qualifiers: COPD type: emphysema Emphysema type: unspecified Qualified Code(s): J43.9 - Emphysema, unspecified (7) Hypertension Priority: Secondary Status: Chronic Qualifiers: Hypertension type: essential hypertension Qualified Code(s): I10 - Essential (primary) hypertension (8) DVT prophylaxis Priority: Secondary Status: Acute (9) Anemia Priority: Secondary Status: Chronic Qualifiers: Anemia type: unspecified type Qualified Code(s): D64.9 - Anemia, unspecified Hospital course: 67 F with OP, chronic pancreatitis, chronic pain with an intrathecal pump, chronic hyponatremia, seizure disorder, copd, HTN Admitted and managed for syncpe with recurrent falls and L radial and ulnar fracture Syncope work up-ECHO, Head CT, LE doppler, Cartod doppler were without significant findings She also had hyponatremia (acute on chronic), hypomgnessemia, hypokalemia. All of these have returned to baseline Follow up with pain physician, PCP, orthopedics. PT review noted and recommends home health Discharged home in stable clinical condition Discharge discussed with: patient, nurse, social work - Time Spent with Patient Total time spent providing and/or coordinating discharge services: Less than 30 minutes - Discharge Medications Prescriptions: OxyCODONE/APAP 5/325 [Percocet 5/325 MG] 1 each PO Q6HR PRN 7 Days #28 tablet PRN Reason: Pain Home Medications: Albuterol Neb [Proventil Neb] 2.5 mg IH Q4-6H PRN 10/02/17 [History] Albuterol Sulfate [Proair Hfa] 2 puff IH Q6H PRN 10/02/17 [History] Aspirin Enteric Coated [Aspirin EC] 81 mg PO DAILY 10/02/17 [History] Calcium Carbonate [Tums] 500 mg PO QID PRN 10/02/17 [History] Calcium Crb,Cit/D3/Min34/Lluvia [Citracal + Bone Density Tablet] 1 tab PO DAILY 10/02/17 [History] Fluticasone/Salmeterol [Advair 250-50 Diskus] 1 puff IH BID 10/02/17 [History] HYDROmorphone [Dilaudid] 4 mg PO QID PRN 10/02/17 [History] Levothyroxine [Synthroid] 88 mcg PO DAILY 10/02/17 [History] Lidocaine Viscous Oral Soln 10 ml MM QID 10/02/17 [History] Lipase/Protease/Amylase [Lu[address] Dr 24,000 Units Capsule] 1 cap PO TIDWM 10/02/17 [History] Lisinopril 30 mg PO DAILY 10/02/17 [History] Modafinil [Provigil] 100 mg PO DAILY 10/02/17 [History] Multivitamin [One Daily Essential] 1 each PO DAILY 10/02/17 [History] Nitroglycerin [Nitrostat] 0.4 mg SL Q5M PRN 10/02/17 [History] Nystatin POWDER [Nystop] 1 appl TP TID PRN 10/02/17 [History] Ondansetron HCl [Zofran] 4 mg PO Q6H PRN 10/02/17 [History] Oxygen 2 l NS AD 10/02/17 [History] Potassium Chloride [Klor-Con 10] 10 meq PO DAILY PRN 10/02/17 [History] Psyllium Husk [Metamucil] 0.52 gm PO DAILY 10/02/17 [History] Sucralfate [Carafate] 1 gm PO QID 10/02/17 [History] Tamsulosin [Flomax] 0.4 mg PO DAILY 10/02/17 [History] diazePAM [Valium] 5 mg PO TID PRN 10/02/17 [History] lamoTRIgine [Lamictal] 100 mg PO HS 10/02/17 [History] Cyclobenzaprine [Flexeril] 10 mg PO TID PRN #15 tablet 12/14/17 [Rx] Acetaminophen [Tylenol] 650 mg PO Q6HR 01/08/18 [History] Esomeprazole Magnesium [Nexium] 40 mg PO Q12H 01/08/18 [History] Furosemide [Lasix] 40 mg PO DAILY 01/08/18 [History] LORazepam [Ativan] 1 mg PO TID 01/08/18 [History] Lidocaine Patch [Lidoderm 5% patch] 1 patch TP DAILY 01/08/18 [History] Metoprolol Succinate [Toprol Xl] 50 mg PO DAILY 01/08/18 [History] Promethazine [Phenergan] 25 mg PO Q6HR 01/08/18 [History] Spironolactone [Aldactone] 25 mg PO DAILY 01/08/18 [History] amLODIPine [Norvasc] 5 mg PO DAILY 01/08/18 [History] OxyCODONE/APAP 5/325 [Percocet 5/325 MG] 1 each PO Q6HR PRN 7 Days #28 tablet [Rx] Allergies/Adverse Reactions: 3 Allergy/AdvReac Type Severity Reaction Status Date / Time ketorolac [From Toradol] Allergy Gastrointestinal Verified 01/08/18 10:38 Upset metronidazole [From Flagyl] Allergy Rash Verified 01/08/18 10:38 Penicillins [PCN] Allergy Hives Verified 01/08/18 10:38 prochlorperazine Allergy Dizziness Verified 01/08/18 10:38 [From Compazine] Sulfa (Sulfonamide Allergy Hives Verified 01/08/18 10:38 Antibiotics) tramadol Allergy Seizure Verified 01/08/18 10:38 Verapamil Allergy Itching Verified 01/08/18 10:38 Date of admission: 01/09/18 08:34 Primary care physician: Lance Marcos MD Consults: 01/11/18 07:32 Consult to Physical Therapy [CONS] Stat Comment: Evaluate, develop and implement POC Reason for Consult: Recurrent falls Does patient have active BEDREST order?: No Is patient medically & hemodynamically stable?: Yes Discharging clinician: Edwardo Mercado Anticipated date of discharge: 01/12/18 - Constitutional Vitals: Temp Pulse Resp BP Pulse Ox 98.7 F 89 18 92/60 92 01/12/18 10:20 01/12/18 10:20 01/12/18 10:20 01/12/18 10:20 01/12/18 10:20 General appearance: Present: A&O X 3, no acute distress, answers questions appropriately - Head Head exam: Present: atraumatic, normocephalic - Eye Eye exam: Present: PERRL, conjuntiva pink, sclera anicteric Pupils: Present: PERRL - Neck Neck exam general surgery: Present: supple, trachea midline. Absent: lymphadenopathy - Respiratory Respiratory exam: Present: CTAB. Absent: accessory muscle use, rales, rhonchi, wheezes - Cardiovascular Cardiovascular exam: Present: RRR, +S1, +S2. Absent: diastolic murmur, gallop, rubs, systolic murmur - GI/Abdominal GI/Abdominal exam: Present: normal bowel sounds, soft, no peritoneal signs. Absent: distended, tenderness - Extremities Exam Extremities exam: Present: warm, radial pulses palpable and symmetrical. Absent : calf tenderness, cyanotic, pedal edema - Neurological Exam Neurological exam: Present: alert, CN II-XII intact, oriented X3, no focal deficits. Absent: pronater drift, facial droop, speech deficit - Skin Skin exam: Present: dry, intact - Patient Status Disposition: Home Health Service Condition: Good Functional capacity at discharge: uses cane/walker Overall status at discharge: patient is progressing back to baseline - Discharge Instructions Follow Up With: Lance Marcos MD [Primary Care Provider] - 01/17/18 2:45 pm (Please follow as schedule....) Additional Instructions: Do not remove splint Elevate hand. Move fingers and thumb, making sure to make a full fist Use ice for 1 to 2 hour 3 times a day for the next 2 days. No lifting with the operative hand No sports or gym activities follow-up in 1 week with Stephy Llanes PA-C - Diet and Activity Activity: resume usual activities as tolerated Diet: low salt diet - VTE Documentation of Mechanical Device: Intermittent pneumatic compression device
== END 2018-01-12 16:38 | disposition home health service (06) | DRG 511 ==
LOC: EMEROO 20:24 → 2ANU 20:24 → SUATTDRO 01-08 02:25 → 2ANU 01-08 02:50 → 3NENU 01-10 14:02
PROVIDERS: ADMIT Internal Medicine Nephrology; ATTEND Internal Medicine